=== PATIENT | male | born 1945 | race Caucasian/White ===

== ENCOUNTER → 2017-01-06 | Day surgery (SDC) | payer OTHER ==
[~2017-01-06] VITALS: Ht 167.6 cm; Wt 108.4 kg
[~2017-01-06] MED LIST: ACETAMINOPHEN 325 MG TAB PO PRN; ATEN50TA2 PO; AcetaZOLAMIDE 500 MG ER CAP PO ONE; BSS with VANC/TOB/EPI for EYE CASES IR ONE; CRES20TA PO; CYCLOPENTOLATE 2% OPHTH SOLN OS ONE; DEMA20TA6 PO; ECOT81TA5 PO; FISH500C PO; HEALON DUET (HEALON 10MG/ML 0.55ML & HEALON ENDOCOAT 30MG/ML 0.85ML) As Ordered ONE; INSUH10VL SC; INSULADS SC; KETOROLAC 0.5% OPHTH SOLN OS ONE; LEVO175T2 PO; LIDOCAINE 1% SDV 5 ML VIAL As Ordered ONE; LIDOCAINE 4% INJ 5 ML AMP OU ONE; LISI-542 PO; LISI10TA4 PO; MIDAZOLAM INJ 2 MG/2 ML VIAL (J2250) As Ordered ONE; MIRT30TA3 PO; MOXIFLOXACIN IN BSS 0.25MG/0.25ML INTRACAMERAL INJ (OR EYE ONLY)(J2280) As Ordered ONE; NITR4TASL SL; OFLOXACIN 0.3 % (OCUFLOX) OPTH SOL 5ML OS ONE; PHENYLEPHRINE 2.5% OPHTH SOL 2ML OS ONE; POVIDONE-IODINE 5% OPHTH PREP SOL 30ML As Ordered ONE; PROPARACAINE 0.5% OPHTH SOL 15ML OS PRN; SERT50TA PO; TORS20TA2 PO; TRIAMCINOLONE PRES FR 40 MG/ML 1ML(TRIESENCE)(OR EYE ONLY)(J3300 PER 1MG) As Ordered ONE; TRIMETHOBENZAMIDE 300 MG CAP PO PRN; TROPICAMIDE 1% OPHTH SOLN 2 ML OS ONE; fentaNYL 100 MCG/2 ML INJECTION (J3010) As Ordered ONE
[2017-01-06 09:08] VITALS: BP 134/82
== END | disposition home or self-care (01) ==
LOC: M SDC 07:03
PROVIDERS: ATTEND Ophthalmology
DX: H26.9 Unspecified cataract (principal); I10 Essential (primary) hypertension; E78.00 Pure hypercholesterolemia, unspecified; E03.9 Hypothyroidism, unspecified; M12.9 Arthropathy, unspecified; C91.10 Chronic lymphocytic leukemia of B-cell type not having achieved remission; M54.2 Cervicalgia; F41.9 Anxiety disorder, unspecified; F32.9 Major depressive disorder, single episode, unspecified; R06.83 Snoring; G47.30 Sleep apnea, unspecified; E11.42 Type 2 diabetes mellitus with diabetic polyneuropathy; E11.65 Type 2 diabetes mellitus with hyperglycemia; I25.10 Atherosclerotic heart disease of native coronary artery without angina pectoris; E66.01 Morbid (severe) obesity due to excess calories; Z68.41 Body mass index [BMI] 40.0-44.9, adult; Z79.899 Other long term (current) drug therapy; Z79.4 Long term (current) use of insulin; Z86.73 Personal history of transient ischemic attack (TIA), and cerebral infarction without residual deficits; Z95.818 Presence of other cardiac implants and grafts; Z87.891 Personal history of nicotine dependence; Z91.14 Patient's other noncompliance with medication regimen
CPT/HCPCS: 66984; J2250; J2280; J3010; J3300; V2632

== ENCOUNTER → 2017-01-26 | Day surgery (SDC) | payer OTHER ==
[~2017-01-26] VITALS: Ht 167.6 cm; Wt 108.0 kg
[~2017-01-26] MED LIST changes: +CYCLOPENTOLATE 2% OPHTH SOLN As Ordered ONE; +CYCLOPENTOLATE 2% OPHTH SOLN OD ONE; -CYCLOPENTOLATE 2% OPHTH SOLN OS ONE; +KETOROLAC 0.5% OPHTH SOLN OD ONE; -KETOROLAC 0.5% OPHTH SOLN OS ONE; +OFLOXACIN 0.3 % (OCUFLOX) OPTH SOL 5ML As Ordered ONE; +OFLOXACIN 0.3 % (OCUFLOX) OPTH SOL 5ML OD ONE; -OFLOXACIN 0.3 % (OCUFLOX) OPTH SOL 5ML OS ONE; +PHENYLEPHRINE 2.5% OPHTH SOL 2ML As Ordered ONE; +PHENYLEPHRINE 2.5% OPHTH SOL 2ML OD ONE; -PHENYLEPHRINE 2.5% OPHTH SOL 2ML OS ONE; +PROPARACAINE 0.5% OPHTH SOL 15ML OD PRN; -PROPARACAINE 0.5% OPHTH SOL 15ML OS PRN; +TROPICAMIDE 1% OPHTH SOLN 2 ML As Ordered ONE; +TROPICAMIDE 1% OPHTH SOLN 2 ML OD ONE; -TROPICAMIDE 1% OPHTH SOLN 2 ML OS ONE
[2017-01-26 11:25] VITALS: BP 136/66
== END | disposition home or self-care (01) ==
LOC: M SDC 08:38
PROVIDERS: ATTEND Ophthalmology
DX: H26.9 Unspecified cataract (principal); I10 Essential (primary) hypertension; E10.9 Type 1 diabetes mellitus without complications; E03.9 Hypothyroidism, unspecified; E78.00 Pure hypercholesterolemia, unspecified; M12.9 Arthropathy, unspecified; M54.2 Cervicalgia; F41.9 Anxiety disorder, unspecified; F32.9 Major depressive disorder, single episode, unspecified; R06.83 Snoring; G47.30 Sleep apnea, unspecified; Z79.899 Other long term (current) drug therapy; Z79.4 Long term (current) use of insulin; Z86.73 Personal history of transient ischemic attack (TIA), and cerebral infarction without residual deficits; Z87.891 Personal history of nicotine dependence; Z95.5 Presence of coronary angioplasty implant and graft
CPT/HCPCS: 66984; J2250; J2280; J3010; J3300; V2632

== ENCOUNTER → 2017-05-21 | Outpatient (CLI) | payer OTHER ==
[~2017-05-21] MED LIST changes: -ACETAMINOPHEN 325 MG TAB PO PRN; -AcetaZOLAMIDE 500 MG ER CAP PO ONE; -BSS with VANC/TOB/EPI for EYE CASES IR ONE; +CARV12.5 PO; +CORE6.25 PO; +COUM1TAB19 PO; -CYCLOPENTOLATE 2% OPHTH SOLN As Ordered ONE; -CYCLOPENTOLATE 2% OPHTH SOLN OD ONE; +FISH120012 PO; -HEALON DUET (HEALON 10MG/ML 0.55ML & HEALON ENDOCOAT 30MG/ML 0.85ML) As Ordered ONE; +IPRA2IN INH; -KETOROLAC 0.5% OPHTH SOLN OD ONE; +LEVA12INH INH; -LIDOCAINE 1% SDV 5 ML VIAL As Ordered ONE; -LIDOCAINE 4% INJ 5 ML AMP OU ONE; -MIDAZOLAM INJ 2 MG/2 ML VIAL (J2250) As Ordered ONE; -MOXIFLOXACIN IN BSS 0.25MG/0.25ML INTRACAMERAL INJ (OR EYE ONLY)(J2280) As Ordered ONE; -OFLOXACIN 0.3 % (OCUFLOX) OPTH SOL 5ML As Ordered ONE; -OFLOXACIN 0.3 % (OCUFLOX) OPTH SOL 5ML OD ONE; -PHENYLEPHRINE 2.5% OPHTH SOL 2ML As Ordered ONE; -PHENYLEPHRINE 2.5% OPHTH SOL 2ML OD ONE; -POVIDONE-IODINE 5% OPHTH PREP SOL 30ML As Ordered ONE; -PROPARACAINE 0.5% OPHTH SOL 15ML OD PRN; +SERT-138 PO; +SYNT175T2 PO; +TOUJ1.2I SC; -TRIAMCINOLONE PRES FR 40 MG/ML 1ML(TRIESENCE)(OR EYE ONLY)(J3300 PER 1MG) As Ordered ONE; -TRIMETHOBENZAMIDE 300 MG CAP PO PRN; -TROPICAMIDE 1% OPHTH SOLN 2 ML As Ordered ONE; -TROPICAMIDE 1% OPHTH SOLN 2 ML OD ONE; -fentaNYL 100 MCG/2 ML INJECTION (J3010) As Ordered ONE
--- NOTE | 2017-05-21 15:37 | REP ---
PA and lateral chest: Comparison is 05/02/2015. The volume of fluid loculated in the minor fissure has significantly decreased. The lung xavier otherwise clear. Cardiac size is normal. The bob, mediastinum, and bony thorax are well. There are sternotomy wires, unchanged. Impression: The volume of fluid loculated in the minor fissure has decreased. There is no other interval change. Signed by Keyon Major MD 05/21/2017 03:28 P
== END ==
LOC: M WUC 14:38
PROVIDERS: ATTEND Physician Assistant
DX: R06.00 Dyspnea, unspecified (principal)

== ENCOUNTER 2017-06-14 05:24 | Inpatient (IN) | payer OTHER, MEDICARE ==
[~2017-06-14] VITALS: Ht 170.2 cm; Wt 110.7 kg
[~2017-06-14 05:24] MED LIST changes: -CARV12.5 PO; -CORE6.25 PO; -COUM1TAB19 PO; -FISH120012 PO; -IPRA2IN INH; -LEVA12INH INH; -SERT-138 PO; -SYNT175T2 PO; -TOUJ1.2I SC
[2017-06-14] MEDS ORDERED: FUROSEMIDE 100 MG/10 ML VIAL (J1940) IV ONE (05:45)
[2017-06-14] MEDS ORDERED: NITROGLYCERIN 2% OINT 1 GM *U/D* PKT TOP ONE (05:45)
[2017-06-14 05:59] LABS: BASO # 0.1 K/mm3 (0.0-0.2); BASO % 0.5 % (0.0-1.0); EOS # 0.3 K/mm3 (0.0-0.50); EOS % 2.1 % (0.0-3.0); LARGE UNSTAINED CELL # 0.2 K/mm3 (0.0-0.4); LARGE UNSTAINED CELL % 1.3 % (0.0-4.0); LYMPH # 3.2 K/mm3 (1.5-4.5); LYMPH % 24.7 % (24.0-44.0); MEAN CORPUSCULAR HEMOGLOBIN 30.1 pg (27.0-33.0); MEAN CORPUSCULAR HGB CONC 32.5 g/dl (32.0-36.5); MEAN CORPUSCULAR VOLUME 92.5 fl (80.0-96.0); MONO # 0.5 K/mm3 (0.0-0.8); MONO % 4.1 % (0.0-5.0); NEUTROPHILS # 8.2 K/mm3 (1.8-7.7); NEUTROPHILS % 67.3 % (36.0-66.0); PLATELET COUNT, AUTOMATED 139 k/mm3 (150-450); RED CELL DISTRIBUTION WIDTH 13.2 % (11.5-14.5); WHITE BLOOD COUNT 12.2 K/mm3 (4.0-10.0)
[2017-06-14] MEDS ORDERED: TOUJ1.2I SC (05:59)
[2017-06-14 06:06] LABS: INR 1.05
[2017-06-14] MEDS ORDERED: diltiaZEM 125 MG in NS 100 ML IV SCH (06:15)
[2017-06-14] MEDS ORDERED: SYNT175T2 PO (06:25)
[2017-06-14] MEDS ORDERED: INSUH10VL SC (06:25)
[2017-06-14] MEDS ORDERED: FISH120012 PO (06:25)
[2017-06-14] MEDS ORDERED: LISI10TA4 PO (06:25)
[2017-06-14 06:26] LABS: CALCIUM LEVEL 8.6 MG/DL (8.8-10.2); CREATININE FOR GFR 1.43 MG/DL (0.70-1.30); POTASSIUM SERUM 4.2 MEQ/L (3.5-5.1)
[2017-06-14] MEDS ORDERED: CEFUROXIME SODIUM 1.5 GM in D5W MINI-BAG PLUS 50 ML IV ONE (06:45)
[2017-06-14] MEDS ORDERED: AZITHROMYCIN INJ 500 MG, VIAL MATE ADAPTER 1 EACH in D5W 250 ML IV ONE (06:45)
[2017-06-14] MEDS ORDERED: ONDANSETRON 4MG/2ML VIAL (J2405) IV PRN (08:15)
[2017-06-14] MEDS ORDERED: GLUCOSE 4 GM CHEW TABLET PO PRN (08:15)
[2017-06-14] MEDS ORDERED: DEXTROSE 50% 50 ML SYRINGE IV PRN (08:15)
[2017-06-14] MEDS ORDERED: GLUCAGON FOR INJ 1 MG VIAL (J1610) SC PRN (08:15)
--- NOTE | 2017-06-14 09:07 | REP ---
Clinical: Dyspnea. Technique: Portable semiupright AP view. Comparison: 05/21/2017. Findings: Cardiomegaly with chronic interstitial changes. Superimposed findings to suggest interstitial edema as well as right upper lobe atelectasis/consolidation and bibasilar atelectasis. No pneumothorax. Evidence for prior sternotomy. Skeletal structures intact. Impression: Right upper lobe opacity and bibasilar atelectasis along with cardiomegaly and suspected interstitial edema. Signed by Suleman Roque MD 06/14/2017 08:59 A
[2017-06-14] MEDS ORDERED: TORS20TA2 PO (09:43)
[2017-06-14] MEDS ORDERED: SERT-138 PO (09:43)
[2017-06-14] MEDS: LEVEMIR (INSULIN DETEMIR) 1 UNITS/0.01ML SC SCH ×2 (11:03→21:41)
[2017-06-14] MEDS: SERTRALINE 100 MG TAB PO SCH (11:03)
[2017-06-14] MEDS: HumaLOG INSULIN (NovoLOG) PER UNIT SC SCH ×3 (11:06→21:00)
[2017-06-14] MEDS: FUROSEMIDE 100 MG/10 ML VIAL (J1940) IV SCH ×2 (11:10→21:40)
[2017-06-14] MEDS ORDERED: LEVALBUTEROL 1.25 MG/0.5 ML CONCENTRATE NEB INH PRN (11:15)
[2017-06-14] MEDS: MIRTAZAPINE 15 MG TAB PO SCH (11:26)
[2017-06-14 12:00] VITALS: BP 150/70
[2017-06-14] MEDS: CARVedilol 3.125 MG TAB PO SCH ×3 (13:02→23:29)
[2017-06-14] MEDS: SENOKOT S TAB PO SCH ×2 (13:03→21:40)
[2017-06-14] MEDS: HEPARIN SOD (PORCINE) 5000 UNITS/ML VIAL SC SCH ×2 (13:03→21:40)
--- NOTE | 2017-06-14 13:18 | ECHO ---
DATE OF PROCEDURE: 06/14/2017 DATE OF : 1945 AGE: 81 GENDER: Male HEIGHT: 67 inches WEIGHT: 238 pounds BODY SURFACE AREA: 2.18 meters squared INPATIENT: Currently in the emergency room. REFERRING PHYSICIAN: Dr. Tejada INDICATION: Atrial flutter. Congestive heart failure (CHF). MEASUREMENTS 2D measurements: RV: 3.6 cm LV: 6.0 cm Septum: 1.2 cm Posterior wall: 1.2 cm Aortic root: 3.4 cm LA: 4.9 cm LVEF: 45% Doppler measurements: AV: 1.5 meters per second MV-E: 120 Early mitral deceleration time: 156 milliseconds E prime: 5.6, E/E prime ratio: 21 PV: 1.0 meters per second Pulmonary artery acceleration time: 74 milliseconds RVSP: 58 mmHg IVC: 2.3 cm COMMENTS: Underlying atrial fibrillation/flutter with controlled ventricular response. Technically difficult in light of the patient's body habitus but diagnostically useful information was still obtained. Mild to moderately dilated left atrium and mildly dilated left ventricle. Right heart chamber sizes and right ventricular chamber size was normal. Right atrium and IVC appeared to be at least mildly dilated. LV wall thickness was upper limits of normal to slightly hypertrophied. On real-time imaging from the parasternal and apical projections, the proximal inferior and inferoseptal region was akinetic. Other wall motion appeared to be normal. Mild mitral annular thickening with normal leaflet thickness; however, there was a "low flow" appearance to leaflet motion. No posterior systolic buckling. Three equal size aortic cusps with slightly thickened cusp edges but adequate cusp separation with slight degree of premature aortic valve closure and reduced aortic root excursion in keeping with reduced forward stroke volume. No apparent intracardiac mass or pericardial effusion. Color flow Doppler study taken from the parasternal and apical projection showed very mild mitral and tricuspid but no aortic insufficiency. Guided continuous wave Doppler of his aortic valve showed a normal peak systolic velocity against LV outflow tract obstruction. Pulsed and continuous wave Doppler of his LV inflow tract taken from the apical four-chamber projection showed normal diastolic filling velocities against mitral stenosis. There was only early diastolic/passive filling pattern as we would expect with atrial fibrillation/flutter. Using a combination of pulsed and tissue Doppler of his mitral annulus, his estimated mean left atrial pressure was elevated. Pulsed and continuous wave Doppler of his pulmonary trunk showed a normal peak systolic velocity against RV outflow tract obstruction. His pulmonary artery acceleration time was significantly abbreviated in keeping with an elevated pulmonary vascular resistance. Guided continuous wave Doppler of his tricuspid valve allowed our estimation of his right ventricular systolic pressure (moderately severely increased). His inferior vena cava was at least mildly dilated with markedly reduced respiratory collapse consistent with right heart failure. CONCLUSIONS: Somewhat technically challenging in light of the patient's body habitus. Mildly dilated and borderline hypertrophied left ventricle with proximal inferior/ inferoseptal akinesis and at least moderate impairment of global resting systolic function. Moderately dilated left atrium with Doppler evidence of an elevated mean left atrial pressure at this time. Normal right ventricular size with the right ventricular hypokinesis and Doppler evidence of moderately severe pulmonary hypertension. Mildly dilated right atrium and inferior vena cava (IVC) with virtually absent respiratory collapse consistent with significantly elevated central venous pressure and right heart failure. Subtle aortic valvular sclerosis and mitral annular thickening without functionally significant valvular abnormality. Copy To: Dr. Emmanuel, [place], [place]
[2017-06-14 14:00] VITALS: BP 143/64
--- NOTE | 2017-06-14 14:44 | HPE ---
DATE OF ADMISSION: 06/14/2017 PRIMARY CARE PROVIDER: Donn Sinclair Jr., MD [employer] OPERATOR: Dr. Emmanuel in [facility] CHIEF COMPLAINT: Increasing shortness of breath for 1 week, worse over the past 3 days, along with chest pressure. PAST MEDICAL HISTORY: Coronary artery disease, status post coronary artery bypass graft (CABG) in 1997 , status post stents in the same year. Peripheral vascular disease, status post stents in the right leg about 5 years ago. Diabetes. Hypertension. Congestive heart failure. Hyperlipidemia. Chronic kidney disease (CKD) stage III. Obstructive sleep apnea (ELIAS). Not on any oxygen or continuous positive airway pressure (CPAP). Anxiety and panic attacks. HISTORY OF PRESENT ILLNESS: This is a 72-year-old male who has been feeling unwell over the past 2 weeks, which for that about 7 days ago, went to an urgent care because of difficulty in breathing. He was prescribed some nebulizers. Had an x-ray done. He used the nebulizers. He was feeling a little better. However, 3 days ago, he started again feeling worse with increasing shortness of breath, chest tightness, unable to take in enough air. He also noticed leg swelling. It worsened yesterday, and he was feeling very unwell. So, he came to the emergency room. In the emergency department (ED), on arrival, the patient was noted to be in supraventricular tachycardia (SVT) with a rate of around 140. He was also noted to have some papilledema. He was having wheezing and crackles. He had a chest x-ray done, which showed interstitial edema, bilateral atelectasis, as well as a right upper lobe opacity. The patient was diagnosed with congestive heart failure exacerbation, SVT, and pneumonia. The patient was given diltiazem intravenously and started diltiazem drip in the emergency room with change of rhythm to atrial flutter with the rate of around 100. He received cefuroxime and azithromycin in the emergency room. He also received 100 mg of Lasix with urine output of about 600. After that, he started feeling better. Subsequently, the hospitalist service was consulted for admission for congestive heart failure exacerbation, pneumonia, and SVT, atrial flutter. PAST SURGICAL HISTORY: Coronary artery bypass graft (CABG). Cardiac stents and peripheral vascular stent. Cataract surgery. HOME MEDICATIONS: - aspirin 81 mg daily - fish oil 1200 mg daily - Toujeo insulin 70 units twice a day - aspart insulin 30 units in the a.m. and 30 units at lunch and 42 units in the p.m. - Synthroid 175 mcg by mouth daily - Lisinopril 10 mg by mouth daily - mirtazapine 30 mg at bedtime - nitroglycerin 0.4 mg sublingual as needed chest pain - Crestor 20 mg at bedtime - sertraline 100 mg by mouth daily - torsemide 40 mg by mouth daily SOCIAL HISTORY: The patient is an ex-smoker. Smoked three packs for about 40 years. Quit smoking about 14 years ago. Does not abuse alcohol or recreational drugs. ALLERGIES: To STREPTOKINASE. REVIEW OF SYSTEMS: All ten-point review of systems are negative, except those mentioned in history of present illness (HPI). PHYSICAL EXAMINATION: VITAL SIGNS: Temperature 97.7, pulse 85, respiratory rate 22, blood pressure 143/67, pulse oximetry 90% with 4 liters nasal cannula. GENERAL: The patient awake, alert, oriented times three. Sitting up in mild distress. HEENT: Normocephalic, atraumatic. Moist mucous membranes. Anicteric eyes. CHEST: Bilateral expiratory wheezes and mild crackles at the base. Overall, poor air entry. CARDIOVASCULAR: S1, S2. Regular. No rub, murmur, or gallop. ABDOMEN: Obese. Soft. Nontender. Bowel sounds present. EXTREMITIES: Trace edema. LABORATORY DATA: WBC 12.2, hemoglobin 12.8, platelet 139. Sodium 136, potassium 4.2, chloride 99, bicarbonate 31, BUN 24, creatinine 1.43, glucose 243, calcium 8.6, cardiac enzymes negative, troponin is 0.19, BNP 79, TSH 3.45, lactic acid 1.8. Coagulation studies are normal. ASSESSMENT AND PLAN: This is a 72-year-old male admitted to the hospital for pneumonia, congestive heart failure exacerbation, and cardiac arhythmia. PLAN: 1. For pneumonia, will continue the patient on ceftriaxone and azithromycin. Blood cultures have been ordered. Will send sputum if available. 2. Congestive heart failure exacerbation. Will get echocardiogram. Will continue the patient on Lasix 60 mg every 8 hours, oral fluid restriction 1.5 liters. Will also continue with nebulizers as needed. Will discontinue diltiazem and start the patient on Coreg 3.125 every 6 hours. Continue on aspirin. 3. Coronary artery disease with history of coronary artery bypass graft (CABG) and stents in the past. Will continue with aspirin, statin. Start the patient on beta willard. 4. Supraventricular tachycardia (SVT), atrial flutter. Rate is at this point controlled. Will start the patient on Coreg 3.125 every 6 hours. If the rate becomes uncontrolled, will go up on Coreg and also add digoxin if required. 5. Chronic kidney disease stage III. Will continue to monitor. 6. Obesity. Complicating management. 7. Obstructive sleep apnea. Was advised to use CPAP and oxygen. However, the patient does not want to use them. Had refused to use them. 8. Peripheral vascular disease with history of stenting of the right lower extremity blood vessels. No issues at this point. 9. Diabetes. Will continue with insulin. Monitor fingersticks. 10. Hypertension. The patient's blood pressure was soft on admission. Will hold lisinopril. Will give Lasix, as well as Coreg. 11. Hyperlipidemia. Will continue with statin. 12. Anxiety and panic attacks. Will continue with sertraline and mirtazapine. 13. Hypothyroid. Will continue with Synthroid. 14. Deep venous thrombosis (DVT) prophylaxis has been ordered. 15. Elevated troponins. Will cycle cardiac markers. Most probably due to SVT and congestive heart failure. The patient initially requested a transfer to [facility], but as it was going to be a same-level transfer, so [place] wanted our hospital to get authorization from his insurance. However, we could not arrange for authorization here today as it is the weekend. At this point, the patient also was feeling very tired and wanted to stay in our hospital. So, will continue to manage the patient here. However, if troponins continue to rise, then will consider transferring him to [place] under Dr. Emmanuel's care. RAMO
[2017-06-14] MEDS: cefTRIAXone SOD 1 GM in D5W MINI-BAG PLUS 50 ML IV SCH (14:56)
[2017-06-14] MEDS: LEVOTHYROXINE 100MCG TABLET (0.1MG) PO SCH (14:56)
[2017-06-14] MEDS: LEVOTHYROXINE 75MCG TABLET (0.075MG) PO SCH (14:56)
[2017-06-14 16:00] VITALS: BP 112/58
[2017-06-14 20:00] VITALS: BP 119/73
[2017-06-14] MEDS ORDERED: MIRTAZAPINE 15 MG TAB PO SCH (21:00)
[2017-06-14] MEDS: ROSUVASTATIN 10 MG TAB (CRESTOR) PO SCH (21:40)
[2017-06-14 23:20] VITALS: BP 120/64
[2017-06-15 02:43] VITALS: BP 118/66
[2017-06-15] MEDS: FUROSEMIDE 100 MG/10 ML VIAL (J1940) IV SCH ×3 (05:19→21:27)
[2017-06-15] MEDS: CARVedilol 3.125 MG TAB PO SCH (05:20)
[2017-06-15] MEDS: LEVOTHYROXINE 75MCG TABLET (0.075MG) PO SCH (05:20)
[2017-06-15] MEDS: LEVOTHYROXINE 100MCG TABLET (0.1MG) PO SCH (05:20)
[2017-06-15 05:59] LABS: BASO # 0.1 K/mm3 (0.0-0.2); BASO % 0.6 % (0.0-1.0); EOS # 0.3 K/mm3 (0.0-0.50); EOS % 2.3 % (0.0-3.0); LARGE UNSTAINED CELL # 0.2 K/mm3 (0.0-0.4); LARGE UNSTAINED CELL % 1.6 % (0.0-4.0); LYMPH # 3.7 K/mm3 (1.5-4.5); LYMPH % 26.8 % (24.0-44.0); MEAN CORPUSCULAR HEMOGLOBIN 30.7 pg (27.0-33.0); MEAN CORPUSCULAR HGB CONC 33.1 g/dl (32.0-36.5); MEAN CORPUSCULAR VOLUME 92.7 fl (80.0-96.0); MONO # 0.7 K/mm3 (0.0-0.8); NEUTROPHILS # 8.4 K/mm3 (1.8-7.7); NEUTROPHILS % 63.7 % (36.0-66.0); PLATELET COUNT, AUTOMATED 149 k/mm3 (150-450); RED CELL DISTRIBUTION WIDTH 13.2 % (11.5-14.5); WHITE BLOOD COUNT 13.1 K/mm3 (4.0-10.0)
[2017-06-15] MEDS ORDERED: LEVALBUTEROL 1.25 MG/0.5 ML CONCENTRATE NEB INH SCH ×2 (06:00→12:00)
[2017-06-15 06:15] LABS: ANION GAP 6 MEQ/L (8-16); BLOOD UREA NITROGEN 24 MG/DL (7-18); CALCIUM LEVEL 8.8 MG/DL (8.8-10.2); CARBON DIOXIDE LEVEL 34 MEQ/L (21-32); CHLORIDE LEVEL 99 MEQ/L (98-107); CREATININE FOR GFR 1.26 MG/DL (0.70-1.30); GLOMERULAR FILTRATION RATE > 60.0 (>42); GLUCOSE, FASTING 89 MG/DL (83-110); MAGNESIUM LEVEL 2.5 MG/DL (1.8-2.4); POTASSIUM SERUM 3.7 MEQ/L (3.5-5.1); SODIUM LEVEL 139 MEQ/L (136-145)
[2017-06-15] MEDS: HumaLOG INSULIN (NovoLOG) PER UNIT SC SCH ×4 (07:30→22:50)
[2017-06-15 08:00] VITALS: BP 124/71
[2017-06-15] MEDS: HEPARIN SOD (PORCINE) 5000 UNITS/ML VIAL SC SCH ×2 (08:10→21:27)
[2017-06-15] MEDS: SERTRALINE 100 MG TAB PO SCH (08:11)
[2017-06-15] MEDS: SENOKOT S TAB PO SCH ×2 (08:11→21:26)
[2017-06-15] MEDS: ASPIRIN 81 MG ENTERIC TAB PO SCH (08:11)
[2017-06-15] MEDS: LEVEMIR (INSULIN DETEMIR) 1 UNITS/0.01ML SC SCH ×3 (08:11→21:28)
[2017-06-15] MEDS: AZITHROMYCIN 250 MG TAB PO SCH (08:11)
[2017-06-15] MEDS: MIRTAZAPINE 15 MG TAB PO SCH (08:12)
[2017-06-15] MEDS ORDERED: LEVALBUTEROL 1.25 MG/0.5 ML CONCENTRATE NEB INH PRN (09:07)
[2017-06-15] MEDS: LEVALBUTEROL 1.25 MG/0.5 ML CONCENTRATE NEB INH SCH ×3 (09:12→23:16)
--- NOTE | 2017-06-15 11:13 | IPNPDOC ---
Subjective Date Seen The patient was seen on 06/15/17. Subjective Chief Complaint/HPI The patient is a 72-year-old male admitted with a reason for visit of Atrial Flutter Chf Exacerbation. Events since last encounter feeling much better today . Sob improving , leg swelling also improving , no fever or chills, no chest tightness today , no cough or phlegm. No abdominal pain , nausea or vomiting or diarrhea. Objective Physical Examination General Exam: Positive: Alert, Cooperative, No Acute Distress Eye Exam: Positive: PERRLA, Conjunctiva & lids normal, EOMI, Negative: Sclera icteric ENT Exam: Positive: Atraumatic, Mucous membr. 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 continue fluid restriction (2) Atrial flutter Status: Acute Problem Text: atrial flutter/ fibrillation now rate controlled will increase dose of coreg. will start on Coumadin. (3) Pneumonia Status: Acute Problem Text: will continue with ceftriaxone and azithromycin. (4) CAD (coronary artery disease) Status: Chronic Problem Text: Had CABG in 1997 and stent x 2 the same year as one graft had failed. Had a repeat cardiac cath about 3 years ago which was fine. will continue with ASA, stain , started on coreg. (5) Hx of CABG Status: Chronic (6) PAD (peripheral artery disease) Status: Chronic Problem Text: s/p stenting in the right leg about 5 years ago. (7) Diabetes Status: Chronic Problem Text: will continue with levemir and lispro insulin (8) Hypertension Status: Chronic (9) Anxiety Status: Chronic Problem Text: continue with zoloft and mirtazepine. (10) Obesity Status: Chronic (11) Hypothyroid Status: Chronic Problem Text: continue with synthroid (12) Pulmonary hypertension Status: Chronic (13) Right heart failure Status: Acute Problem Text: acute on chronic will continue with IV lasix. Plan/VTE VTE Prophylaxis Ordered?: Yes VS, I&O, 24H, Fishbone Vital Signs/I&O Vital Signs Date Time Temp Pulse Resp B/P (MAP) Pulse Ox O2 Delivery O2 Flow Rate FiO2 06/15/17 10:01 Nasal Cannula 2.0 06/15/17 08:00 97.1 103 22 124/71 (88) 94 I&O- Last 24 Hours up to 6 AM 06/15/17 05:59 Intake Total 1000 ml Output Total 2975 ml Balance -1975 ml Laboratory Data 24H LABS Laboratory Tests 2 06/14/17 12:15: Total Creatine Kinase 175, Creatine Kinase MB 4.8H, Creatine Kinase MB Relative Index 2.74, Troponin I 0.18H 06/14/17 19:59: Total Creatine Kinase 171, Creatine Kinase MB 4.3H, Creatine Kinase MB Relative Index 2.51, Troponin I 0.14#H 06/15/17 00:20: Total Creatine Kinase 158, Creatine Kinase MB 4.0H, Creatine Kinase MB Relative Index 2.53, Troponin I 0.17#H 06/15/17 05:11: White Blood Count 13.1H, Red Blood Count 4.19L, Hemoglobin 12.8L, Hematocrit 38.8L, Mean Corpuscular Volume 92.7, Mean Corpuscular Hemoglobin 30.7, Mean Corpuscular Hemoglobin Concent 33.1, Red Cell Distribution Width 13.2, Platelet Count 149L, Neutrophils (%) (Auto) 63.7, Lymphocytes (%) (Auto) 26.8, Monocytes (%) (Auto) 5.0, Eosinophils (%) (Auto) 2.3, Basophils (%) (Auto) 0.6, Neutrophils # (Auto) 8.4H, Lymphocytes # (Auto) 3.7, Monocytes # (Auto) 0.7, Eosinophils # (Auto) 0.3, Basophils # (Auto) 0.1, Large Unclassified Cells % 1.6 , Large Unclassified Cells # 0.2, Anion Gap 6L, Glomerular Filtration Rate > 60.0, Blood Urea Nitrogen 24H, Creatinine 1.26, Sodium Level 139, Potassium Level 3.7, Chloride Level 99, Carbon Dioxide Level 34H, Calcium Level 8.8, Magnesium Level 2.5H CBC/BMP Laboratory Tests 06/15/17 05:11 Red Blood Count 4.19 L, Mean Corpuscular Volume 92.7, Mean Corpuscular Hemoglobin 30.7, Mean Corpuscular Hemoglobin Concent 33.1, Red Cell Distribution Width 13.2, Neutrophils (%) (Auto) 63.7, Lymphocytes (%) (Auto) 26.8, Monocytes (%) (Auto) 5.0, Eosinophils (%) (Auto) 2.3, Basophils (%) (Auto ) 0.6, Neutrophils # (Auto) 8.4 H, Lymphocytes # (Auto) 3.7, Monocytes # (Auto) 0.7, Eosinophils # (Auto) 0.3, Basophils # (Auto) 0.1, Calcium Level 8.8 Microbiology Microbiology 06/14/17 Blood Culture - Preliminary, Resulted No growth after 24 hours . All specim... 06/14/17 Blood Culture - Preliminary, Resulted No growth after 24 hours . All specim... GLADYS SARGENT MD Jun 15, 2017 11:13
[2017-06-15 12:15] VITALS: BP 142/76
[2017-06-15] MEDS: LISINOPRIL 5 MG TAB PO SCH (12:26)
[2017-06-15] MEDS: CARVedilol 6.25 MG TAB PO SCH ×2 (12:27→17:42)
[2017-06-15] MEDS ORDERED: SLF 3 ML SYR IV PRN (14:15)
[2017-06-15] MEDS: SLF 3 ML SYR IV SCH ×2 (14:53→21:27)
[2017-06-15] MEDS: cefTRIAXone SOD 1 GM in D5W MINI-BAG PLUS 50 ML IV SCH (14:53)
[2017-06-15 15:50] VITALS: BP 134/71
[2017-06-15] MEDS: WARFARIN SOD 5 MG TAB PO SCH (17:42)
[2017-06-15 20:06] VITALS: BP 114/60
--- NOTE | 2017-06-15 20:53 | ECGEPIP ---
Stationary ECG Study [facility] - ED Test Date: 2017-06-14 Pat Name: YOLA MARINA Department: Room: [place] [address] Gender: M Director Learning: idonna : 1945 Requested By: Levi Rayo Order Number: [id number] Reading MD: Shelley Rosario Measurements Intervals [place] Rate: 99 P: [place]: 0 QRS: 9 QRSD: 111 T: 68 QT: 344 QTc: 443 Interpretive Statements ATRIAL FLUTTER/TACHYCARDIA MODERATE INTRAVENTRICULAR CONDUCTION DELAY MODERATE T-WAVE ABNORMALITY, CONSIDER INFERIOR ISCHEMIA SLOWER COMPARED EARLIER SAME DAY Electronically Signed On 06-15-2017 20:52:47 EDT by Shelley Rosario
--- NOTE | 2017-06-15 20:54 | ECGEPIP ---
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
[2017-06-15] MEDS: ROSUVASTATIN 10 MG TAB (CRESTOR) PO SCH (21:26)
[2017-06-16 00:09] VITALS: BP 109/58
[2017-06-16 05:38] VITALS: BP 122/63
[2017-06-16 06:14] LABS: BASO % 0.3 % (0.0-1.0); EOS # 0.2 K/mm3 (0.0-0.50); EOS % 1.5 % (0.0-3.0); LARGE UNSTAINED CELL # 0.2 K/mm3 (0.0-0.4); LARGE UNSTAINED CELL % 1.8 % (0.0-4.0); LYMPH # 2.6 K/mm3 (1.5-4.5); LYMPH % 22.3 % (24.0-44.0); MEAN CORPUSCULAR HEMOGLOBIN 31.1 pg (27.0-33.0); MEAN CORPUSCULAR HGB CONC 33.1 g/dl (32.0-36.5); MONO # 0.5 K/mm3 (0.0-0.8); MONO % 4.4 % (0.0-5.0); NEUTROPHILS # 7.9 K/mm3 (1.8-7.7); NEUTROPHILS % 69.6 % (36.0-66.0); PLATELET COUNT, AUTOMATED 158 k/mm3 (150-450); WHITE BLOOD COUNT 11.4 K/mm3 (4.0-10.0)
[2017-06-16] MEDS: LEVOTHYROXINE 75MCG TABLET (0.075MG) PO SCH (06:18)
[2017-06-16] MEDS: LEVOTHYROXINE 100MCG TABLET (0.1MG) PO SCH (06:18)
[2017-06-16] MEDS: CARVedilol 6.25 MG TAB PO SCH ×4 (06:18→17:30)
[2017-06-16 06:19] LABS: CALCIUM LEVEL 8.5 MG/DL (8.8-10.2); CREATININE FOR GFR 1.55 MG/DL (0.70-1.30); GLOMERULAR FILTRATION RATE 47.4 (>42); MAGNESIUM LEVEL 2.5 MG/DL (1.8-2.4); POTASSIUM SERUM 4.1 MEQ/L (3.5-5.1)
[2017-06-16] MEDS: FUROSEMIDE 100 MG/10 ML VIAL (J1940) IV SCH ×2 (06:19→16:24)
[2017-06-16] MEDS: SLF 3 ML SYR IV SCH ×3 (06:19→22:00)
[2017-06-16] MEDS: HumaLOG INSULIN (NovoLOG) PER UNIT SC SCH ×4 (07:30→21:00)
[2017-06-16] MEDS: LEVALBUTEROL 1.25 MG/0.5 ML CONCENTRATE NEB INH SCH ×3 (07:35→23:06)
[2017-06-16 07:45] VITALS: BP 94/57
--- NOTE | 2017-06-16 08:02 | REP ---
Clinical: Pneumonia. CHF. Comparison: 06/14/2017. Findings: Cardiomegaly and findings to suggest interstitial edema again noted. Vague ovoid opacity overlies the right mid lung zone which may reflect infiltrate and/or pseudotumor with fluid in the minor fissure noted. Layering left effusion cannot be excluded. No pneumothorax. Skeletal structures intact. Impression: Cardiomegaly and interstitial edema suggested. Cannot exclude a vague opacity overlying the right mid lung zone as well as fluid in the minor fissure. Signed by Suleman Roque MD 06/16/2017 07:54 A
[2017-06-16] MEDS: SENOKOT S TAB PO SCH ×2 (09:00→21:31)
[2017-06-16] MEDS: SERTRALINE 100 MG TAB PO SCH (09:00)
[2017-06-16] MEDS: AZITHROMYCIN 250 MG TAB PO SCH (09:00)
[2017-06-16] MEDS: ASPIRIN 81 MG ENTERIC TAB PO SCH (09:00)
[2017-06-16] MEDS: MIRTAZAPINE 15 MG TAB PO SCH (09:00)
[2017-06-16] MEDS: LISINOPRIL 5 MG TAB PO SCH (09:01)
[2017-06-16] MEDS: HEPARIN SOD (PORCINE) 5000 UNITS/ML VIAL SC SCH ×2 (09:01→21:31)
[2017-06-16] MEDS: LEVEMIR (INSULIN DETEMIR) 1 UNITS/0.01ML SC SCH ×2 (09:02→21:31)
[2017-06-16 12:00] VITALS: BP 146/70
--- NOTE | 2017-06-16 13:07 | IPNPDOC ---
Subjective Date Seen The patient was seen on 06/16/17. Subjective Chief Complaint/HPI The patient is a 72-year-old male admitted with a reason for visit of Atrial Flutter Chf Exacerbation. Events since last encounter feeling much better, Sob slowly improving , leg swelling has improved. no chest pain , no cough . Objective Physical Examination General Exam: Positive: Alert, Cooperative, No Acute Distress Eye Exam: Positive: PERRLA, Conjunctiva & lids normal, EOMI, Negative: Sclera icteric ENT Exam: Positive: Atraumatic, Mucous membr. 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 continue fluid restriction (2) Atrial flutter Status: Acute Problem Text: atrial flutter/ fibrillation now rate controlled will increase dose of coreg. on Coumadin. (3) Pneumonia Status: Acute Problem Text: will continue with ceftriaxone and azithromycin. (4) CAD (coronary artery disease) Status: Chronic Problem Text: Had CABG in 1997 and stent x 2 the same year as one graft had failed. Had a repeat cardiac cath about 3 years ago which was fine. will continue with ASA, stain , started on coreg. (5) Hx of CABG Status: Chronic (6) PAD (peripheral artery disease) Status: Chronic Problem Text: s/p stenting in the right leg about 5 years ago. (7) Diabetes Status: Chronic Problem Text: Had relative hypoglycemia this am Says has symptoms of hypoglycemia when his sugars go below 120. will decrease night dose of levemir. (8) Hypertension Status: Chronic (9) Anxiety Status: Chronic Problem Text: continue with zoloft and mirtazepine. (10) Obesity Status: Chronic (11) Hypothyroid Status: Chronic Problem Text: continue with synthroid (12) Pulmonary hypertension Status: Chronic (13) Right heart failure Status: Acute Problem Text: acute on chronic will continue with IV lasix. Plan/VTE VTE Prophylaxis Ordered?: Yes VS, I&O, 24H, Fishbone Vital Signs/I&O Vital Signs Date Time Temp Pulse Resp B/P (MAP) Pulse Ox O2 Delivery O2 Flow Rate FiO2 06/16/17 12:17 80 118/66 06/16/17 08:10 Nasal Cannula 3.0 06/16/17 07:45 97.6 20 93 I&O- Last 24 Hours up to 6 AM 06/16/17 06:00 Intake Total 840 ml Output Total 1600 ml Balance -760 ml Laboratory Data 24H LABS Laboratory Tests 2 06/15/17 17:04: Bedside Glucose (Misc Panel) 87 06/15/17 22:30: Bedside Glucose (Misc Panel) 123H 06/16/17 02:08: Bedside Glucose (Misc Panel) 74L 06/16/17 02:36: Bedside Glucose (Misc Panel) 213H 06/16/17 05:38: White Blood Count 11.4H, Red Blood Count 4.06L, Hemoglobin 12.6L, Hematocrit 38.2L, Mean Corpuscular Volume 94.0, Mean Corpuscular Hemoglobin 31.1, Mean Corpuscular Hemoglobin Concent 33.1, Red Cell Distribution Width 13.0, Platelet Count 158, Neutrophils (%) (Auto) 69.6H, Lymphocytes (%) (Auto) 22.3L, Monocytes (%) (Auto) 4.4, Eosinophils (%) (Auto) 1.5, Basophils (%) (Auto) 0.3, Neutrophils # (Auto) 7.9H, Lymphocytes # (Auto) 2.6, Monocytes # (Auto) 0.5, Eosinophils # (Auto) 0.2, Basophils # (Auto) 0.0, Large Unclassified Cells % 1.8 , Large Unclassified Cells # 0.2, Anion Gap 7L, Glomerular Filtration Rate 47.4 , Blood Urea Nitrogen 30H, Creatinine 1.55H, Sodium Level 142, Potassium Level 4.1, Chloride Level 98, Carbon Dioxide Level 37H, Calcium Level 8.5L, Magnesium Level 2.5H CBC/BMP Laboratory Tests 06/16/17 05:38 Red Blood Count 4.06 L, Mean Corpuscular Volume 94.0, Mean Corpuscular Hemoglobin 31.1, Mean Corpuscular Hemoglobin Concent 33.1, Red Cell Distribution Width 13.0, Neutrophils (%) (Auto) 69.6 H, Lymphocytes (%) (Auto) 22.3 L, Monocytes (%) (Auto) 4.4, Eosinophils (%) (Auto) 1.5, Basophils (%) ( Auto) 0.3, Neutrophils # (Auto) 7.9 H, Lymphocytes # (Auto) 2.6, Monocytes # ( Auto) 0.5, Eosinophils # (Auto) 0.2, Basophils # (Auto) 0.0, Calcium Level 8.5 L Microbiology Microbiology 06/14/17 Blood Culture - Preliminary, Resulted No Growth after 48 hours. All Specime... 06/14/17 Blood Culture - Preliminary, Resulted No Growth after 48 hours. All Specime... GLADYS SARGENT MD Jun 16, 2017 13:07
[2017-06-16] MEDS: cefTRIAXone SOD 1 GM in D5W MINI-BAG PLUS 50 ML IV SCH (14:35)
[2017-06-16 15:45] VITALS: BP 132/85
[2017-06-16] MEDS: WARFARIN SOD 5 MG TAB PO SCH (17:30)
[2017-06-16 19:29] VITALS: BP 90/50
[2017-06-16] MEDS: ROSUVASTATIN 10 MG TAB (CRESTOR) PO SCH (21:30)
[2017-06-17 00:29] VITALS: BP 92/64
[2017-06-17] MEDS: CARVedilol 6.25 MG TAB PO SCH ×2 (00:45→05:35)
[2017-06-17 04:30] VITALS: BP 92/56
[2017-06-17] MEDS: LEVOTHYROXINE 100MCG TABLET (0.1MG) PO SCH (05:36)
[2017-06-17] MEDS: SLF 3 ML SYR IV SCH ×3 (05:36→21:26)
[2017-06-17] MEDS: LEVOTHYROXINE 75MCG TABLET (0.075MG) PO SCH (05:36)
[2017-06-17 05:53] LABS: BASO # 0.1 K/mm3 (0.0-0.2); BASO % 0.4 % (0.0-1.0); EOS # 0.3 K/mm3 (0.0-0.50); EOS % 2.5 % (0.0-3.0); LARGE UNSTAINED CELL # 0.2 K/mm3 (0.0-0.4); LARGE UNSTAINED CELL % 1.8 % (0.0-4.0); LYMPH # 3.5 K/mm3 (1.5-4.5); LYMPH % 25.6 % (24.0-44.0); MEAN CORPUSCULAR HEMOGLOBIN 30.7 pg (27.0-33.0); MEAN CORPUSCULAR HGB CONC 32.4 g/dl (32.0-36.5); MEAN CORPUSCULAR VOLUME 94.9 fl (80.0-96.0); MONO # 0.6 K/mm3 (0.0-0.8); MONO % 4.4 % (0.0-5.0); NEUTROPHILS # 8.4 K/mm3 (1.8-7.7); NEUTROPHILS % 65.2 % (36.0-66.0); PLATELET COUNT, AUTOMATED 162 k/mm3 (150-450); RED CELL DISTRIBUTION WIDTH 13.3 % (11.5-14.5); WHITE BLOOD COUNT 12.8 K/mm3 (4.0-10.0)
[2017-06-17 06:07] LABS: INR 1.07
[2017-06-17 06:15] LABS: CALCIUM LEVEL 8.8 MG/DL (8.8-10.2); CREATININE FOR GFR 1.42 MG/DL (0.70-1.30); GLOMERULAR FILTRATION RATE 52.5 (>42); MAGNESIUM LEVEL 2.6 MG/DL (1.8-2.4); POTASSIUM SERUM 4.1 MEQ/L (3.5-5.1)
[2017-06-17 07:30] VITALS: BP 133/79
[2017-06-17] MEDS: LEVALBUTEROL 1.25 MG/0.5 ML CONCENTRATE NEB INH SCH ×3 (07:32→23:11)
[2017-06-17] MEDS: SERTRALINE 100 MG TAB PO SCH (08:49)
[2017-06-17] MEDS: MIRTAZAPINE 15 MG TAB PO SCH (08:50)
[2017-06-17] MEDS: SENOKOT S TAB PO SCH ×2 (08:50→21:24)
[2017-06-17] MEDS: AZITHROMYCIN 250 MG TAB PO SCH (08:51)
[2017-06-17] MEDS: CARVedilol 12.5 MG TAB PO SCH ×2 (08:52→21:24)
[2017-06-17] MEDS: ASPIRIN 81 MG ENTERIC TAB PO SCH (08:52)
[2017-06-17] MEDS: HumaLOG INSULIN (NovoLOG) PER UNIT SC SCH ×4 (08:53→21:25)
[2017-06-17] MEDS: HEPARIN SOD (PORCINE) 5000 UNITS/ML VIAL SC SCH ×2 (08:54→21:23)
[2017-06-17] MEDS: FUROSEMIDE 100 MG/10 ML VIAL (J1940) IV SCH ×2 (08:54→15:58)
[2017-06-17] MEDS ORDERED: LEVEMIR (INSULIN DETEMIR) 1 UNITS/0.01ML SC SCH (09:00)
[2017-06-17] MEDS: BUDESONIDE 0.5 MG/2 ML INHALATION SUSPENSION INH SCH ×2 (09:14→23:11)
[2017-06-17 12:10] VITALS: BP 105/54
--- NOTE | 2017-06-17 12:50 | IPNPDOC ---
Subjective Date Seen The patient was seen on 06/17/17. Subjective Chief Complaint/HPI The patient is a 72-year-old male admitted with a reason for visit of Atrial Flutter Chf Exacerbation. Events since last encounter does not offer any new complaints though still requiring 3 to 5 liters of oxygen. denies any sob . Had a panic attack last night which he thinks as he has not been getting uninterrupted sleep at night. no fever or chills, has some cough but no expectoration. Objective Physical Examination General Exam: Positive: Alert, Cooperative, No Acute Distress Eye Exam: Positive: PERRLA, Conjunctiva & lids normal, EOMI, Negative: Sclera icteric ENT Exam: Positive: Atraumatic, Mucous membr. 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 continue fluid restriction will continue with nebs. (2) Atrial flutter Status: Acute Problem Text: atrial flutter/ fibrillation now rate controlled will give coreg 12.5 bid. on Coumadin. will increase dose. (3) Pneumonia Status: Acute Problem Text: will continue with ceftriaxone and azithromycin. (4) CAD (coronary artery disease) Status: Chronic Problem Text: Had CABG in 1997 and stent x 2 the same year as one graft had failed. Had a repeat cardiac cath about 3 years ago which was fine. will continue with ASA, stain , started on coreg. (5) Hx of CABG Status: Chronic (6) PAD (peripheral artery disease) Status: Chronic Problem Text: s/p stenting in the right leg about 5 years ago. (7) Diabetes Status: Chronic Problem Text: Had relative hypoglycemia this am Says has symptoms of hypoglycemia when his sugars go below 120. will decrease night dose of levemir. (8) Hypertension Status: Chronic (9) Anxiety Status: Chronic Problem Text: continue with zoloft and mirtazepine. (10) Obesity Status: Chronic (11) Hypothyroid Status: Chronic Problem Text: continue with synthroid (12) Pulmonary hypertension Status: Chronic (13) Right heart failure Status: Acute Problem Text: acute on chronic will continue with IV lasix. Plan/VTE VTE Prophylaxis Ordered?: Yes VS, I&O, 24H, Fishbone Vital Signs/I&O Vital Signs Date Time Temp Pulse Resp B/P (MAP) Pulse Ox O2 Delivery O2 Flow Rate FiO2 06/17/17 08:52 101 133/79 06/17/17 07:30 96.4 20 98 Nasal Cannula 5.0 I&O- Last 24 Hours up to 6 AM 06/17/17 05:59 Intake Total 750 ml Output Total 950 ml Balance -200 ml Laboratory Data 24H LABS Laboratory Tests 2 06/16/17 16:30: Bedside Glucose (Misc Panel) 178H 06/16/17 21:34: Bedside Glucose (Misc Panel) 248H 06/17/17 05:32: White Blood Count 12.8H, Red Blood Count 4.03L, Hemoglobin 12.4L, Hematocrit 38.2L, Mean Corpuscular Volume 94.9, Mean Corpuscular Hemoglobin 30.7, Mean Corpuscular Hemoglobin Concent 32.4, Red Cell Distribution Width 13.3, Platelet Count 162, Neutrophils (%) (Auto) 65.2, Lymphocytes (%) (Auto) 25.6, Monocytes ( %) (Auto) 4.4, Eosinophils (%) (Auto) 2.5, Basophils (%) (Auto) 0.4, Neutrophils # (Auto) 8.4H, Lymphocytes # (Auto) 3.5, Monocytes # (Auto) 0.6, Eosinophils # (Auto) 0.3, Basophils # (Auto) 0.1, Large Unclassified Cells % 1.8 , Large Unclassified Cells # 0.2, Prothrombin Time 14.1, Prothromb Time International Ratio 1.07, Anion Gap 7L, Glomerular Filtration Rate 52.5, Blood Urea Nitrogen 32H, Creatinine 1.42H, Sodium Level 140, Potassium Level 4.1, Chloride Level 98, Carbon Dioxide Level 35H, Calcium Level 8.8, Magnesium Level 2.6H 06/17/17 11:47: Bedside Glucose (Misc Panel) 193H CBC/BMP Laboratory Tests 06/17/17 05:32 Red Blood Count 4.03 L, Mean Corpuscular Volume 94.9, Mean Corpuscular Hemoglobin 30.7, Mean Corpuscular Hemoglobin Concent 32.4, Red Cell Distribution Width 13.3, Neutrophils (%) (Auto) 65.2, Lymphocytes (%) (Auto) 25.6, Monocytes (%) (Auto) 4.4, Eosinophils (%) (Auto) 2.5, Basophils (%) (Auto ) 0.4, Neutrophils # (Auto) 8.4 H, Lymphocytes # (Auto) 3.5, Monocytes # (Auto) 0.6, Eosinophils # (Auto) 0.3, Basophils # (Auto) 0.1, Calcium Level 8.8 Microbiology Microbiology 06/14/17 Blood Culture - Preliminary, Resulted No Growth after 72 hours. All specime... 06/14/17 Blood Culture - Preliminary, Resulted No Growth after 72 hours. All specime... GLADYS SARGENT MD Jun 17, 2017 12:49
[2017-06-17 15:50] VITALS: BP 111/60
[2017-06-17] MEDS: WARFARIN SOD 5 MG TAB PO SCH (15:57)
[2017-06-17] MEDS: cefTRIAXone SOD 1 GM in D5W MINI-BAG PLUS 50 ML IV SCH (15:58)
[2017-06-17 20:00] VITALS: BP 132/76
[2017-06-17] MEDS ORDERED: ACETAMINOPHEN TAB 650MG DOSE (2X325MG) PO PRN (21:15)
[2017-06-17] MEDS: ROSUVASTATIN 10 MG TAB (CRESTOR) PO SCH (21:24)
[2017-06-17] MEDS: LEVEMIR (INSULIN DETEMIR) 1 UNITS/0.01ML SC SCH (21:26)
[2017-06-18 00:09] VITALS: BP 105/60
[2017-06-18 04:00] VITALS: BP 119/64
[2017-06-18 05:50] LABS: BASO # 0.1 K/mm3 (0.0-0.2); BASO % 0.7 % (0.0-1.0); EOS # 0.4 K/mm3 (0.0-0.50); EOS % 3.2 % (0.0-3.0); LARGE UNSTAINED CELL # 0.2 K/mm3 (0.0-0.4); LARGE UNSTAINED CELL % 1.9 % (0.0-4.0); LYMPH # 3.3 K/mm3 (1.5-4.5); LYMPH % 27.8 % (24.0-44.0); MEAN CORPUSCULAR HEMOGLOBIN 30.2 pg (27.0-33.0); MEAN CORPUSCULAR HGB CONC 31.5 g/dl (32.0-36.5); MEAN CORPUSCULAR VOLUME 95.9 fl (80.0-96.0); MONO # 0.5 K/mm3 (0.0-0.8); MONO % 4.8 % (0.0-5.0); NEUTROPHILS # 6.8 K/mm3 (1.8-7.7); NEUTROPHILS % 61.6 % (36.0-66.0); PLATELET COUNT, AUTOMATED 165 k/mm3 (150-450); RED CELL DISTRIBUTION WIDTH 13.3 % (11.5-14.5); WHITE BLOOD COUNT 11.1 K/mm3 (4.0-10.0)
[2017-06-18 06:05] LABS: CALCIUM LEVEL 9.1 MG/DL (8.8-10.2); CREATININE FOR GFR 1.38 MG/DL (0.70-1.30); GLOMERULAR FILTRATION RATE 54.2 (>42); MAGNESIUM LEVEL 2.5 MG/DL (1.8-2.4); POTASSIUM SERUM 4.5 MEQ/L (3.5-5.1)
[2017-06-18 06:07] LABS: INR 1.31
[2017-06-18] MEDS: LEVOTHYROXINE 100MCG TABLET (0.1MG) PO SCH (06:15)
[2017-06-18] MEDS: SLF 3 ML SYR IV SCH ×3 (06:15→22:00)
[2017-06-18] MEDS: LEVOTHYROXINE 75MCG TABLET (0.075MG) PO SCH (06:15)
[2017-06-18] MEDS: BUDESONIDE 0.5 MG/2 ML INHALATION SUSPENSION INH SCH ×2 (07:10→20:56)
[2017-06-18] MEDS: LEVALBUTEROL 1.25 MG/0.5 ML CONCENTRATE NEB INH SCH ×2 (07:11→16:14)
[2017-06-18 08:00] VITALS: BP 131/69
[2017-06-18] MEDS: AZITHROMYCIN 250 MG TAB PO SCH (08:07)
[2017-06-18] MEDS: ASPIRIN 81 MG ENTERIC TAB PO SCH (08:07)
[2017-06-18] MEDS: SENOKOT S TAB PO SCH ×2 (08:08→21:11)
[2017-06-18] MEDS: HEPARIN SOD (PORCINE) 5000 UNITS/ML VIAL SC SCH ×2 (08:08→21:10)
[2017-06-18] MEDS: SERTRALINE 100 MG TAB PO SCH (08:08)
[2017-06-18] MEDS: FUROSEMIDE 100 MG/10 ML VIAL (J1940) IV SCH (08:10)
[2017-06-18] MEDS: MIRTAZAPINE 15 MG TAB PO SCH (08:12)
[2017-06-18] MEDS: CARVedilol 12.5 MG TAB PO SCH ×2 (08:12→21:11)
[2017-06-18] MEDS: HumaLOG INSULIN (NovoLOG) PER UNIT SC SCH ×4 (08:14→20:46)
[2017-06-18] MEDS: LEVEMIR (INSULIN DETEMIR) 1 UNITS/0.01ML SC SCH (08:15)
[2017-06-18 12:00] VITALS: BP 136/75
--- NOTE | 2017-06-18 13:18 | IPNPDOC ---
Subjective Date Seen The patient was seen on 06/18/17. Subjective Chief Complaint/HPI The patient is a 72-year-old male admitted with a reason for visit of Atrial Flutter Chf Exacerbation. Events since last encounter still requiring oxygen. continues to have wheezing though does not complain of any SOB. Objective Physical Examination General Exam: Positive: Alert, Cooperative, No Acute Distress Eye Exam: Positive: PERRLA, Conjunctiva & lids normal, EOMI, Negative: Sclera icteric ENT Exam: Positive: Atraumatic, Mucous membr. moist/pink, Pharynx Normal Neck Exam: Positive: Supple, Negative: JVD, thyromegaly Chest Exam: Positive: Rales, Rhonchi, Wheezing, Diminished Heart Exam: Positive: Rate Normal, Irregular Rhythm, Normal S1, Normal S2 Telemetry: Positive: Other Telemetry: (atrial flutter) Abdomen Exam: Positive: Normal bowel sounds, Soft, Negative: Tenderness, Hepatospenomegaly Extremity Exam: Positive: Edema Skin Exam: Positive: Nl turgor and temperature, Negative: Rash, Breakdown Assessment /Plan Problems (1) Acute respiratory failure with hypoxia Problem Text: due to CHF exacerbation and fluid overload. continues to require 3 to 4 liters of oxygen. Patient saturates 82% at rest in room air. pateint will need to go home with home oxygen. 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 daily weight and I/O monitoring . continue fluid restriction will continue with nebs. (3) Atrial flutter Status: Acute Problem Text: atrial flutter/ fibrillation now rate controlled will give coreg 12.5 bid. on Coumadin. will increase dose. (4) Pneumonia Status: Resolved Problem Text: finished 5 days of ceftriaxone and azithromycin. will get ct chest . (5) CAD (coronary artery disease) Status: Chronic Problem Text: Had CABG in 1997 and stent x 2 the same year as one graft had failed. Had a repeat cardiac cath about 3 years ago which was fine. will continue with ASA, stain , started on coreg. (6) Hx of CABG Status: Chronic (7) PAD (peripheral artery disease) Status: Chronic Problem Text: s/p stenting in the right leg about 5 years ago. (8) Diabetes Status: Chronic Problem Text: Had relative hypoglycemia this am Says has symptoms of hypoglycemia when his sugars go below 120. will decrease night dose of levemir. (9) Hypertension Status: Chronic (10) Anxiety Status: Chronic Problem Text: continue with zoloft and mirtazepine. (11) Obesity Status: Chronic (12) Hypothyroid Status: Chronic Problem Text: continue with synthroid (13) Pulmonary hypertension Status: Chronic (14) Right heart failure Status: Acute Problem Text: acute on chronic will continue with IV lasix. Plan/VTE VTE Prophylaxis Ordered?: Yes VS, I&O, 24H, Fishbone Vital Signs/I&O Vital Signs Date Time Temp Pulse Resp B/P (MAP) Pulse Ox O2 Delivery O2 Flow Rate FiO2 06/18/17 08:12 91 131/69 06/18/17 08:00 Nasal Cannula 3.0 06/18/17 08:00 97.1 20 90 I&O- Last 24 Hours up to 6 AM 06/18/17 06:00 Intake Total 1130 ml Output Total 1950 ml Balance -820 ml Laboratory Data 24H LABS Laboratory Tests 2 06/17/17 16:44: Bedside Glucose (Misc Panel) 186H 06/17/17 21:19: Bedside Glucose (Misc Panel) 266H 06/18/17 05:23: White Blood Count 11.1H, Red Blood Count 4.28L, Hemoglobin 12.9L, Hematocrit 41.1L, Mean Corpuscular Volume 95.9, Mean Corpuscular Hemoglobin 30.2, Mean Corpuscular Hemoglobin Concent 31.5L, Red Cell Distribution Width 13.3, Platelet Count 165, Neutrophils (%) (Auto) 61.6, Lymphocytes (%) (Auto) 27.8, Monocytes (%) (Auto) 4.8, Eosinophils (%) (Auto) 3.2H, Basophils (%) (Auto) 0.7 , Neutrophils # (Auto) 6.8, Lymphocytes # (Auto) 3.3, Monocytes # (Auto) 0.5, Eosinophils # (Auto) 0.4, Basophils # (Auto) 0.1, Large Unclassified Cells % 1.9 , Large Unclassified Cells # 0.2, Prothrombin Time 16.6H, Prothromb Time International Ratio 1.31, Anion Gap 6L, Glomerular Filtration Rate 54.2, Blood Urea Nitrogen 35H, Creatinine 1.38H, Sodium Level 138, Potassium Level 4.5, Chloride Level 97L, Carbon Dioxide Level 35H, Calcium Level 9.1, Magnesium Level 2.5H CBC/BMP Laboratory Tests 06/18/17 05:23 Red Blood Count 4.28 L, Mean Corpuscular Volume 95.9, Mean Corpuscular Hemoglobin 30.2, Mean Corpuscular Hemoglobin Concent 31.5 L, Red Cell Distribution Width 13.3, Neutrophils (%) (Auto) 61.6, Lymphocytes (%) (Auto) 27.8, Monocytes (%) (Auto) 4.8, Eosinophils (%) (Auto) 3.2 H, Basophils (%) ( Auto) 0.7, Neutrophils # (Auto) 6.8, Lymphocytes # (Auto) 3.3, Monocytes # (Auto ) 0.5, Eosinophils # (Auto) 0.4, Basophils # (Auto) 0.1, Calcium Level 9.1 Microbiology Microbiology 06/14/17 Blood Culture - Preliminary, Resulted No Growth after 72 hours. All specime... 06/14/17 Blood Culture - Preliminary, Resulted No Growth after 72 hours. All specime... GLADYS SARGENT MD Jun 18, 2017 13:18
--- NOTE | 2017-06-18 14:52 | REP ---
Clinical: Shortness of breath. CHF. Findings: A small to moderate bilateral pleural effusions are appreciated along with fluid trapped in the fissures (right greater than left) including pseudotumor overlying the right mid lung zone due to fluid trapped in the posterior aspect of the right major fissure. Cardiomegaly with associated pulmonary vascular congestion is also appreciated as well as mediastinal and hilar adenopathy with lymph nodes measuring up to approximately 2 cm short axis diameter. Chronic interstitial changes are noted along with atherosclerotic changes of the thoracic aorta and coronary arteries. No pericardial effusion. Limited upper abdomen demonstrates cholelithiasis and normal bilateral adrenal glands. Impression: 1. Findings compatible with pulmonary edema including pulmonary vascular congestion, interstitial edema, and bilateral pleural effusions causing pseudotumor in the right upper lung zone. 2. Mediastinal and hilar adenopathy likely reactive. Signed by Suleman Roque MD 06/18/2017 02:43 P
[2017-06-18] MEDS: WARFARIN SOD 5 MG TAB PO SCH (18:22)
[2017-06-18 19:51] VITALS: BP 120/56
[2017-06-18] MEDS ORDERED: LEVEMIR (INSULIN DETEMIR) 1 UNITS/0.01ML SC SCH (21:00)
[2017-06-18] MEDS: ROSUVASTATIN 10 MG TAB (CRESTOR) PO SCH (21:11)
[2017-06-19] VITALS (7 sets, daily range): BP systolic 110–152; BP diastolic 52–74
[2017-06-19] MEDS: LEVALBUTEROL 1.25 MG/0.5 ML CONCENTRATE NEB INH SCH ×4 (00:13→23:54)
[2017-06-19] MEDS: LEVOTHYROXINE 100MCG TABLET (0.1MG) PO SCH (05:08)
[2017-06-19] MEDS: LEVOTHYROXINE 75MCG TABLET (0.075MG) PO SCH (05:08)
[2017-06-19] MEDS: SLF 3 ML SYR IV SCH ×3 (05:27→21:09)
[2017-06-19 05:46] LABS: BASO # 0.1 K/mm3 (0.0-0.2); BASO % 0.6 % (0.0-1.0); EOS # 0.3 K/mm3 (0.0-0.50); EOS % 2.7 % (0.0-3.0); LARGE UNSTAINED CELL # 0.2 K/mm3 (0.0-0.4); LARGE UNSTAINED CELL % 1.6 % (0.0-4.0); LYMPH # 3.5 K/mm3 (1.5-4.5); LYMPH % 26.2 % (24.0-44.0); MEAN CORPUSCULAR HEMOGLOBIN 30.2 pg (27.0-33.0); MEAN CORPUSCULAR HGB CONC 31.8 g/dl (32.0-36.5); MONO # 0.6 K/mm3 (0.0-0.8); PLATELET COUNT, AUTOMATED 157 k/mm3 (150-450); RED CELL DISTRIBUTION WIDTH 13.4 % (11.5-14.5); WHITE BLOOD COUNT 12.4 K/mm3 (4.0-10.0)
[2017-06-19 05:50] LABS: INR 2.1
[2017-06-19 06:06] LABS: ANION GAP 4 MEQ/L (8-16); BLOOD UREA NITROGEN 30 MG/DL (7-18); CALCIUM LEVEL 8.7 MG/DL (8.8-10.2); CARBON DIOXIDE LEVEL 37 MEQ/L (21-32); CHLORIDE LEVEL 96 MEQ/L (98-107); CREATININE FOR GFR 1.23 MG/DL (0.70-1.30); GLOMERULAR FILTRATION RATE > 60.0 (>42); GLUCOSE, FASTING 205 MG/DL (83-110); MAGNESIUM LEVEL 2.6 MG/DL (1.8-2.4); POTASSIUM SERUM 4.1 MEQ/L (3.5-5.1); SODIUM LEVEL 137 MEQ/L (136-145)
[2017-06-19] MEDS: BUDESONIDE 0.5 MG/2 ML INHALATION SUSPENSION INH SCH ×2 (07:11→19:53)
[2017-06-19] MEDS: metOLazone 5 MG TAB PO SCH (08:00)
[2017-06-19] MEDS: HumaLOG INSULIN (NovoLOG) PER UNIT SC SCH ×4 (08:02→20:55)
[2017-06-19] MEDS ORDERED: FUROSEMIDE 40 MG TAB PO SCH (09:00)
[2017-06-19] MEDS: FUROSEMIDE 40 MG/4 ML VIAL (J1940) IV SCH ×2 (09:15→17:05)
[2017-06-19] MEDS: SERTRALINE 100 MG TAB PO SCH (09:16)
[2017-06-19] MEDS: SENOKOT S TAB PO SCH ×2 (09:16→20:54)
[2017-06-19] MEDS: ASPIRIN 81 MG ENTERIC TAB PO SCH (09:16)
[2017-06-19] MEDS: HEPARIN SOD (PORCINE) 5000 UNITS/ML VIAL SC SCH ×2 (09:16→20:54)
[2017-06-19] MEDS: CARVedilol 3.125 MG TAB PO SCH ×2 (09:17→20:53)
[2017-06-19] MEDS: CARVedilol 12.5 MG TAB PO SCH ×2 (09:18→20:53)
[2017-06-19] MEDS: MIRTAZAPINE 15 MG TAB PO SCH (09:18)
[2017-06-19] MEDS: LEVEMIR (INSULIN DETEMIR) 1 UNITS/0.01ML SC SCH (09:19)
--- NOTE | 2017-06-19 10:14 | IPNPDOC ---
Subjective Date Seen The patient was seen on 06/19/17. Subjective Chief Complaint/HPI The patient is a 72-year-old male admitted with a reason for visit of Atrial Flutter Chf Exacerbation. Events since last encounter pateint hypoxic at rest in room air to 79%, says sob is improving. no cough or phlegm. feeling slowly better. Objective Physical Examination General Exam: Positive: Alert, Cooperative, No Acute Distress Eye Exam: Positive: PERRLA, Conjunctiva & lids normal, EOMI, Negative: Sclera icteric ENT Exam: Positive: Atraumatic, Mucous membr. 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 daily weight and I/O monitoring . continue fluid restriction will continue with nebs. (2) Atrial flutter Status: Acute Problem Text: atrial flutter/ fibrillation now rate controlled will give coreg 12.5 bid. on Coumadin. will increase dose. (3) Pneumonia Status: Resolved Problem Text: Ct chest did not showed any pneumonia all was fluid so did not have pneumonia however did finish finished 5 days of ceftriaxone and azithromycin. (4) CAD (coronary artery disease) Status: Chronic Problem Text: Had CABG in 1997 and stent x 2 the same year as one graft had failed. Had a repeat cardiac cath about 3 years ago which was fine. will continue with ASA, stain , started on coreg. (5) Hx of CABG Status: Chronic (6) PAD (peripheral artery disease) Status: Chronic Problem Text: s/p stenting in the right leg about 5 years ago. (7) Diabetes Status: Chronic Problem Text: Had relative hypoglycemia this am Says has symptoms of hypoglycemia when his sugars go below 120. will decrease night dose of levemir. (8) Hypertension Status: Chronic (9) Anxiety Status: Chronic Problem Text: continue with zoloft and mirtazepine. (10) Obesity Status: Chronic (11) Hypothyroid Status: Chronic Problem Text: continue with synthroid (12) Pulmonary hypertension Status: Chronic (13) Right heart failure Status: Acute Problem Text: acute on chronic will continue with IV lasix. (14) Acute respiratory failure with hypoxia Problem Text: due to CHF exacerbation and fluid overload. continues to require 3 to 4 liters of oxygen. Patient saturates 82% at rest in room air. pateint will need to go home with home oxygen. Plan/VTE VTE Prophylaxis Ordered?: Yes VS, I&O, 24H, Fishbone Vital Signs/I&O Vital Signs Date Time Temp Pulse Resp B/P (MAP) Pulse Ox O2 Delivery O2 Flow Rate FiO2 06/19/17 09:17 90 110/67 06/19/17 08:00 97.2 18 94 Nasal Cannula 3.0 I&O- Last 24 Hours up to 6 AM 06/19/17 06:00 Intake Total 1320 ml Output Total 2150 ml Balance -830 ml Laboratory Data 24H LABS Laboratory Tests 2 06/18/17 12:32: Bedside Glucose (Misc Panel) 249H 06/18/17 17:12: Bedside Glucose (Misc Panel) 217H 06/18/17 20:23: Bedside Glucose (Misc Panel) 249H 06/19/17 05:25: White Blood Count 12.4H, Red Blood Count 4.29L, Hemoglobin 13.0L, Hematocrit 40.7L, Mean Corpuscular Volume 95.0, Mean Corpuscular Hemoglobin 30.2, Mean Corpuscular Hemoglobin Concent 31.8L, Red Cell Distribution Width 13.4, Platelet Count 157, Neutrophils (%) (Auto) 64.0, Lymphocytes (%) (Auto) 26.2, Monocytes (%) (Auto) 5.0, Eosinophils (%) (Auto) 2.7, Basophils (%) (Auto) 0.6, Neutrophils # (Auto) 8.0H, Lymphocytes # (Auto) 3.5, Monocytes # (Auto) 0.6, Eosinophils # (Auto) 0.3, Basophils # (Auto) 0.1, Large Unclassified Cells % 1.6 , Large Unclassified Cells # 0.2, Prothrombin Time 24.3H, Prothromb Time International Ratio 2.10, Anion Gap 4L, Glomerular Filtration Rate > 60.0, Blood Urea Nitrogen 30H, Creatinine 1.23, Sodium Level 137, Potassium Level 4.1 , Chloride Level 96L, Carbon Dioxide Level 37H, Calcium Level 8.7L, Magnesium Level 2.6H CBC/BMP Laboratory Tests 06/19/17 05:25 Red Blood Count 4.29 L, Mean Corpuscular Volume 95.0, Mean Corpuscular Hemoglobin 30.2, Mean Corpuscular Hemoglobin Concent 31.8 L, Red Cell Distribution Width 13.4, Neutrophils (%) (Auto) 64.0, Lymphocytes (%) (Auto) 26.2, Monocytes (%) (Auto) 5.0, Eosinophils (%) (Auto) 2.7, Basophils (%) (Auto ) 0.6, Neutrophils # (Auto) 8.0 H, Lymphocytes # (Auto) 3.5, Monocytes # (Auto) 0.6, Eosinophils # (Auto) 0.3, Basophils # (Auto) 0.1, Calcium Level 8.7 L Microbiology Microbiology 06/14/17 Blood Culture - Final, Complete NO GROWTH AFTER 5 DAYS 06/14/17 Blood Culture - Final, Complete NO GROWTH AFTER 5 DAYS GLADYS SARGENT MD Jun 19, 2017 10:14
[2017-06-19] MEDS ORDERED: WARFARIN SOD 3 MG TAB PO SCH (17:00)
[2017-06-19] MEDS: ROSUVASTATIN 10 MG TAB (CRESTOR) PO SCH (20:53)
[2017-06-19] MEDS ORDERED: LEVEMIR (INSULIN DETEMIR) 1 UNITS/0.01ML SC SCH (21:00)
[2017-06-20 04:00] VITALS: BP 148/67
[2017-06-20 05:06] LABS: BASO % 0.4 % (0.0-1.0); EOS # 0.3 K/mm3 (0.0-0.50); EOS % 2.2 % (0.0-3.0); LARGE UNSTAINED CELL # 0.2 K/mm3 (0.0-0.4); LARGE UNSTAINED CELL % 1.5 % (0.0-4.0); LYMPH # 2.7 K/mm3 (1.5-4.5); LYMPH % 20.7 % (24.0-44.0); MEAN CORPUSCULAR HEMOGLOBIN 31.3 pg (27.0-33.0); MEAN CORPUSCULAR VOLUME 92.1 fl (80.0-96.0); MONO # 0.6 K/mm3 (0.0-0.8); MONO % 4.6 % (0.0-5.0); NEUTROPHILS # 9.3 K/mm3 (1.8-7.7); NEUTROPHILS % 70.7 % (36.0-66.0); PLATELET COUNT, AUTOMATED 170 k/mm3 (150-450); RED CELL DISTRIBUTION WIDTH 12.9 % (11.5-14.5); WHITE BLOOD COUNT 13.2 K/mm3 (4.0-10.0)
[2017-06-20 05:19] LABS: INR 2.78
[2017-06-20 05:24] LABS: CALCIUM LEVEL 8.8 MG/DL (8.8-10.2); CREATININE FOR GFR 1.27 MG/DL (0.70-1.30); GLOMERULAR FILTRATION RATE 59.7 (>42); MAGNESIUM LEVEL 2.5 MG/DL (1.8-2.4); POTASSIUM SERUM 3.7 MEQ/L (3.5-5.1)
[2017-06-20] MEDS: LEVOTHYROXINE 75MCG TABLET (0.075MG) PO SCH (06:03)
[2017-06-20] MEDS: LEVOTHYROXINE 100MCG TABLET (0.1MG) PO SCH (06:03)
[2017-06-20] MEDS: SLF 3 ML SYR IV SCH (06:03)
[2017-06-20] MEDS: LEVALBUTEROL 1.25 MG/0.5 ML CONCENTRATE NEB INH SCH (07:14)
[2017-06-20] MEDS: BUDESONIDE 0.5 MG/2 ML INHALATION SUSPENSION INH SCH (07:14)
[2017-06-20] MEDS: HumaLOG INSULIN (NovoLOG) PER UNIT SC SCH (07:35)
[2017-06-20] MEDS: metOLazone 5 MG TAB PO SCH (07:35)
[2017-06-20 08:00] VITALS: BP 125/65
[2017-06-20] MEDS: FUROSEMIDE 40 MG/4 ML VIAL (J1940) IV SCH (08:55)
[2017-06-20 08:56] VITALS: BP 125/65
[2017-06-20] MEDS: CARVedilol 12.5 MG TAB PO SCH (08:56)
[2017-06-20] MEDS: ASPIRIN 81 MG ENTERIC TAB PO SCH (08:56)
[2017-06-20] MEDS: HEPARIN SOD (PORCINE) 5000 UNITS/ML VIAL SC SCH (08:56)
[2017-06-20] MEDS: MIRTAZAPINE 15 MG TAB PO SCH (08:56)
[2017-06-20] MEDS: SERTRALINE 100 MG TAB PO SCH (08:57)
[2017-06-20] MEDS: SENOKOT S TAB PO SCH (08:57)
[2017-06-20] MEDS: LEVEMIR (INSULIN DETEMIR) 1 UNITS/0.01ML SC SCH (08:57)
[2017-06-20] MEDS: CARVedilol 3.125 MG TAB PO SCH (08:57)
[2017-06-20] MEDS ORDERED: LEVA12INH INH (09:34)
[2017-06-20] MEDS ORDERED: COUM1TAB19 PO (09:34)
[2017-06-20] MEDS ORDERED: CORE6.25 PO (09:34)
[2017-06-20] MEDS ORDERED: CARV12.5 PO (09:34)
[2017-06-20] MEDS ORDERED: TORS20TA2 PO (09:36)
[2017-06-20 09:42] VITALS: O2SAT 88; O2SAT 90
[2017-06-20] MEDS ORDERED: IPRA2IN INH (09:46)
--- NOTE | 2017-06-22 05:57 | DSES ---
DATE OF ADMISSION: 06/14/2017 DATE OF DISCHARGE: 06/20/2017 PRIMARY CARE PROVIDER: Dr. Sinclair. AUTOMATION SOFTWARE ENGINEER: Dr. Emmanuel in [facility]. DISCHARGE DIAGNOSES: 1. Acute hypoxic respiratory failure requiring 4-5 liters of oxygen. 2. Combined systolic and diastolic and right-sided heart failure with acute exacerbation, ejection fraction (EF) of 45%. 3. Pulmonary hypertension. 4. Atrial flutter/fibrillation, started on Coumadin. 5. Coronary artery disease status post coronary artery bypass graft (CABG) and stents in the past. 6. Peripheral arterial disease status post stenting in the right leg. 7. Diabetes. 8. Hypertension. 9. Anxiety. 10. Obesity. 11. Hypothyroid. 12. Obstructive sleep apnea (ELIAS). 13. Elevated troponins due to congestive heart failure and tachycardia. 14. Acute kidney injury resolved. DISCHARGE MEDICATIONS: - Coreg 12.5 mg by mouth twice a day, Coreg 6.25 mg by mouth twice a day, total of 18.75 mg twice a day - levalbuterol 0.63 mg inhalation routine every six hours - ipratropium bromide 0.5 mg nebulizer solution inhalation every six hours - torsemide 40 mg by mouth twice a day - Coumadin 3 mg by mouth daily - aspirin 81 mg daily - fish oil 1200 mg by mouth daily - Toujeo insulin 30 units twice a day - insulin aspart as per sliding scale - Synthroid 175 mcg by mouth daily - lisinopril 10 mg by mouth daily - mirtazapine 30 mg at bedtime - nitroglycerin 0.4 mg sublingual as needed for chest pain - rosuvastatin 40 mg at bedtime - sertraline 100 mg by mouth daily HOSPITAL COURSE: This is a 72-year-old male who presented to the hospital with increasing shortness of breath over the past one month, worse over the past one week, along with chest pressure for the past three days. The patient had visited urgent care twice in the past month for shortness of breath and was prescribed nebulizers which did help the patient temporarily; however, over the past one week, nothing was helping with his breathing trouble and over the past three days he has been extremely short of breath with chest tightness and leg swelling. In the emergency room on arrival, he was noted to be in supraventricular tachycardia with a rate of about 140. He was also noted to have bipedal edema. He was extremely hypoxic, saturating to about 86-87% with respiratory rate of 22, and a pulse of 143. The patient was diagnosed with supraventricular tachycardia, acute respiratory failure and congestive heart failure. The patient was given two doses of intravenous (IV) Lasix with about 600 mL of urine output. Also given several treatments with nebulizers which significantly improved his shortness of breath. Subsequently, the patient was admitted under the hospitalist service for congestive heart failure exacerbation and severe hypoxia and acute respiratory failure. The patient's chest x-ray in the emergency room showed bilateral effusions, pulmonary vascular congestion, as well as possible pneumonia, so the patient was empirically started on antibiotics. The patient did finish a five-day course of ceftriaxone and azithromycin for possible community-acquired pneumonia; however, later on during hospitalization, the patient had a CT scan of the chest done which did not reveal any pneumonia, showed features of fluid overload. The patient was started on aggressive diuresis in the hospital, as well as Coreg for rate control. The patient's heart rate slowly became controlled and with his diuresis, his symptoms improved. However, the patient continued to require 3-4 liters of oxygen throughout the hospitalization. The patient was saturating only 82-84% at rest on room air, so patient was prescribed home oxygen at discharge. With four liters, his oxygen saturation was 87-88%, so he was prescribed home oxygen at a rate of five liters to be used 03/05. On the day of discharge, the patient was comfortable. His symptoms were slowly improving. He was functionally close to his baseline, and his vital signs were stable. PHYSICAL EXAMINATION: VITAL SIGNS: Temperature 96.4, pulse 75, respiratory rate 20, blood pressure 125/65, pulse oximetry 90% with five liters nasal cannula. GENERAL: Patient awake, alert, oriented times three, lying down in chair in no acute distress. HEENT: Normocephalic, atraumatic. Moist mucous membranes. Anicteric eyes. CHEST: Bilateral basal crackles, expiratory wheezes and overall poor air entry. CARDIOVASCULAR: S1, S2. Irregular. No rub, murmur or gallop. ABDOMEN: Obese, soft, nontender. Bowel sounds present. EXTREMITIES: One plus edema. LABORATORY DATA: WBC 13.2, hemoglobin 13.7, platelets 117. Sodium 135, potassium 3.5, chloride 94, bicarbonate 40, BUN 32, creatinine 1.27, glucose 171, calcium 8.8, magnesium 2.5. TSH 3.45. BNP 79.4. Troponin was 0.19, 0.18, 0.14, and 0.17. MICROBIOLOGY: Blood culture no growth after five days. IMAGING: CT chest on 06/18/2017, showed small to moderate bilateral pleural effusions along with fluid trapped in the fissures of the lungs, right greater than left, including pseudotumor overlaying the right midlung zone due to fluid trapped in the posterior aspect of the right major fissure, cardiomegaly with associated pulmonary vascular congestion, mediastinal and hilar lymphadenopathy with lymph nodes measuring up to approximately 2 cm, short-axis diameter, which were felt to be reactive. Chronic interstitial changes, atherosclerotic changes in the thoracic aorta and coronary arteries. Cholelithiasis. Normal bilateral adrenal glands. No pericardial effusion. Echocardiogram showed left ventricular ejection fraction of 45%, severe pulmonary hypertension with pressure of 58, left ventricular hypertrophy mild. There were no wall motion abnormalities. Right ventricular systolic pressure was moderately to severely increased. Inferior vena cava was mildly dilated with markedly reduced respiratory collapse consistent with right heart failure. There was proximal inferior and inferoseptal akinesis. There was elevated mean left atrial pressure. There was normal right ventricular size with right ventricular hypokinesia. DISPOSITION: The patient is discharged home with home oxygen. DISCHARGE INSTRUCTIONS: Patient to followup with primary care provider in two weeks. Patient to followup with solar system installer, Dr. Emmanuel, within one week. Two-gram sodium diet and consistent carbohydrate diet. Fluid restriction 1.5 liters per day. Activity as tolerated. Patient to followup for international normalized ratio (INR) check either with solar system installer or primary care provider in two days.
== END 2017-06-20 10:55 | disposition home or self-care (01) | DRG 291 ==
LOC: M ED 05:24 → M ED INP 08:06 → M ICU 12:46 → M PCU 06-15 02:33 → M PED 06-15 09:56 → M PCU 06-15 09:58
PROVIDERS: ADMIT Internal Medicine Nephrology; ATTEND Internal Medicine Nephrology
DX: I13.0 Hypertensive heart and chronic kidney disease with heart failure and stage 1 through stage 4 chronic kidney disease, or unspecified chronic kidney disease (principal); J18.9 Pneumonia, unspecified organism; I50.43 Acute on chronic combined systolic (congestive) and diastolic (congestive) heart failure; J96.01 Acute respiratory failure with hypoxia; I47.1 Supraventricular tachycardia; I48.92 Unspecified atrial flutter; N17.9 Acute kidney failure, unspecified; I25.10 Atherosclerotic heart disease of native coronary artery without angina pectoris; E11.51 Type 2 diabetes mellitus with diabetic peripheral angiopathy without gangrene; E03.9 Hypothyroidism, unspecified; I27.2 Other secondary pulmonary hypertension; N18.3 Chronic kidney disease, stage 3 (moderate); E66.9 Obesity, unspecified; E11.649 Type 2 diabetes mellitus with hypoglycemia without coma; E78.5 Hyperlipidemia, unspecified; G47.33 Obstructive sleep apnea (adult) (pediatric); F41.0 Panic disorder [episodic paroxysmal anxiety]; Z95.820 Peripheral vascular angioplasty status with implants and grafts; Z95.5 Presence of coronary angioplasty implant and graft; Z79.82 Long term (current) use of aspirin; Z79.4 Long term (current) use of insulin; Z79.899 Other long term (current) drug therapy; Z88.8 Allergy status to other drugs, medicaments and biological substances; Z87.891 Personal history of nicotine dependence

== ENCOUNTER → 2017-07-09 | Outpatient (CLI) | payer OTHER ==
[~2017-07-09] MED LIST changes: +CARV12.5 PO; +CORE6.25 PO; +COUM1TAB19 PO; +FISH120012 PO; +IPRA2IN INH; +LEVA12INH INH; +SERT-138 PO; +SYNT175T2 PO; +TOUJ1.2I SC
[2017-07-09 15:46] LABS: CREATININE FOR GFR 1.27 MG/DL (0.70-1.30); GLOMERULAR FILTRATION RATE 59.7 (>42); POTASSIUM SERUM 3.5 MEQ/L (3.5-5.1)
== END ==
LOC: M LAB 14:46
PROVIDERS: ATTEND Physician Assistant
DX: I50.42 Chronic combined systolic (congestive) and diastolic (congestive) heart failure (principal)

== ENCOUNTER → 2017-07-12 | Outpatient (CLI) | payer OTHER | LOC: M LAB 12:05 | PROVIDERS: ATTEND Internal Medicine Cardiovascular Disease | DX: Z79.01 Long term (current) use of anticoagulants (principal) ==

== ENCOUNTER → 2017-08-06 | Outpatient (CLI) | payer OTHER ==
[2017-08-06 14:43] LABS: INR 1.7
== END ==
LOC: M LAB 13:41
PROVIDERS: ATTEND Internal Medicine Cardiovascular Disease
DX: Z79.01 Long term (current) use of anticoagulants (principal)

== ENCOUNTER → 2017-08-27 | Outpatient (CLI) | payer OTHER ==
[2017-08-27 15:06] LABS: INR 2.49
== END ==
LOC: M LAB 14:26
PROVIDERS: ATTEND Internal Medicine Cardiovascular Disease
DX: Z51.81 Encounter for therapeutic drug level monitoring (principal); Z79.01 Long term (current) use of anticoagulants

== ENCOUNTER → 2017-09-03 | Outpatient (CLI) | payer OTHER ==
[2017-09-03 14:14] LABS: INR 1.75
== END ==
LOC: M LAB 13:49
PROVIDERS: ATTEND Internal Medicine Cardiovascular Disease
DX: Z79.01 Long term (current) use of anticoagulants (principal)

== ENCOUNTER → 2017-09-10 | Outpatient (CLI) | payer OTHER ==
[2017-09-10 14:39] LABS: INR 2.32
== END ==
LOC: M LAB 13:43
PROVIDERS: ATTEND Internal Medicine Cardiovascular Disease
DX: Z79.01 Long term (current) use of anticoagulants (principal); I48.92 Unspecified atrial flutter

== ENCOUNTER → 2017-09-24 | Outpatient (CLI) | payer OTHER ==
[~2017-09-24] MED LIST changes: +NITR100C39 PO; +SPIR25TA2
[2017-09-24 14:40] LABS: INR 1.94
== END ==
LOC: M LAB 13:56
PROVIDERS: ATTEND Internal Medicine Cardiovascular Disease
DX: Z79.01 Long term (current) use of anticoagulants (principal)

== ENCOUNTER 2017-09-25 18:51 | Emergency (ER) | payer OTHER ==
[~2017-09-25] VITALS: Ht 167.6 cm; Wt 104.5 kg
[~2017-09-25 18:51] MED LIST changes: -NITR100C39 PO; -SPIR25TA2
[2017-09-25] MEDS ORDERED: TORS20TA2 PO (19:00)
[2017-09-25] MEDS ORDERED: SPIR25TA2 (19:00)
[2017-09-25 19:39] LABS: BASO # 0.1 10^3/uL (0.0-0.2); BASO % 0.5 % (0.0-1.0); EOS # 0.3 10^3/uL (0.0-0.50); IMMATURE GRANULOCYTE % 0.4 % (0-0); LYMPH # 3.1 10^3/uL (1.5-4.5); LYMPH % 22.5 % (24.0-44.0); MEAN CORPUSCULAR HEMOGLOBIN 29.2 pg (27.0-33.0); MEAN CORPUSCULAR HGB CONC 32.1 g/dl (32.0-36.5); MONO % 6.9 % (0.0-5.0); NEUTROPHILS # 9.3 10^3/uL (1.8-7.7); NEUTROPHILS % 67.7 % (36.0-66.0); PLATELET COUNT, AUTOMATED 168 10^3/uL (150-450); RED CELL DISTRIBUTION WIDTH 13.3 % (11.5-14.5); WHITE BLOOD COUNT 13.8 10^3/uL (4.0-10.0)
[2017-09-25 19:57] LABS: INR 1.84
[2017-09-25 20:10] LABS: ALBUMIN 3.9 GM/DL (3.2-5.2); ALBUMIN/GLOBULIN RATIO 0.95 (1.00-1.93); BILIRUBIN,TOTAL 0.3 MG/DL (0.2-1.0); CALCIUM LEVEL 8.3 MG/DL (8.8-10.2); CREATININE FOR GFR 1.67 MG/DL (0.70-1.30); GLOMERULAR FILTRATION RATE 43.5 (>42); POTASSIUM SERUM 4.1 MEQ/L (3.5-5.1)
[2017-09-25] MEDS ORDERED: HumuLIN R (REGULAR) INSULIN (NovoLIN R) **100U/ML** PER UNIT SC ONE (20:30)
[2017-09-25] MEDS ORDERED: NS 500 ML IV ONE (21:00)
--- NOTE | 2017-09-25 21:00 | REPUSA ---
CT of the abdomen and pelvis without contrast Clinical statement: Gross hematuria. Technique: Multiple axial CT images were obtained from the base of the lungs to the floor of the pelv is utilizing 5 mm axial slices without administration of contrast. Coronal and sagittal reconstructio ns were also obtained. No comparison is available. Findings: Chest: The visualized lung bases demonstrates a small right-sided pleural effusion and right lower lo be infiltrate. Abdomen: The kidneys are normal in size bilaterally. There is no evidence of hydronephrosis or nephro lithiasis. The gallbladder is filled with gallstones. No pericholecystic inflammatory changes are see n. The liver and spleen are enlarged. The liver measures 29.6 cm in longest diameter, and spleen brittni ures 16.6 cm in longest diameter. No focal hepatic or splenic masses are appreciated. The liver demon strates nodular contour however. The pancreas and adrenal glands are unremarkable. The aorta demonstr ates moderate atherosclerotic calcifications. There is borderline infrarenal abdominal aortic aneurys m of the location, measuring up to 2.9 x 3.0 cm. Several prominent peripancreatic lymph nodes are not ed. For example, a portahepatic lymph node measures 1.7 x 1.1 cm. There is no abdominal ascites. Pelvis: The bowel is unremarkable, with no obstructive or inflammatory changes. The appendix is koko l. The urinary bladder is within normal limits. There is no pelvic lymphadenopathy or ascites. The ot her pelvic structures appear unremarkable. Bones: There are no suspicious osseous abnormalities seen. There is mild degenerative disc disease at L1/L2. There is moderate degenerative disc disease at L5/S1, with a 8mm anterior spondylolisthesis n oted. This is caused by bilateral pars interarticularis defects at this level. Impression: 1. No evidence of hydronephrosis or nephrolithiasis. The urinary bladder is unremarkable. No discrete findings to explain the patient's hematuria. 2. Cholelithiasis, without evidence of acute cholecystitis. 3. Hepatosplenomegaly, with hepatic changes consistent with cirrhosis. 4. Small right lower lobe infiltrate and pleural effusion. 5. Several small peripancreatic enlarged lymph nodes, of unknown uncertain clinical significance. 6. Grade 1 anterior spondylolisthesis of L5 upon S1.
[2017-09-25] MEDS ORDERED: NITR100C39 PO (21:57)
[2017-09-25 22:04] VITALS: BP 144/63
== END 2017-09-25 22:08 | disposition home or self-care (01) ==
LOC: M ED 20:05
DX: N39.0 Urinary tract infection, site not specified (principal); R31.9 Hematuria, unspecified; J90 Pleural effusion, not elsewhere classified; E11.9 Type 2 diabetes mellitus without complications; I11.0 Hypertensive heart disease with heart failure; I50.9 Heart failure, unspecified; G47.30 Sleep apnea, unspecified; E03.9 Hypothyroidism, unspecified; Z86.73 Personal history of transient ischemic attack (TIA), and cerebral infarction without residual deficits; Z95.1 Presence of aortocoronary bypass graft; Z95.5 Presence of coronary angioplasty implant and graft; Z79.899 Other long term (current) drug therapy; Z79.82 Long term (current) use of aspirin; Z79.4 Long term (current) use of insulin; Z79.01 Long term (current) use of anticoagulants; Z88.8 Allergy status to other drugs, medicaments and biological substances; Z87.891 Personal history of nicotine dependence

== ENCOUNTER → 2017-10-01 | Outpatient (CLI) | payer OTHER ==
[~2017-10-01] MED LIST changes: +NITR100C39 PO; +SPIR25TA2
[2017-10-01 14:33] LABS: INR 1.93
== END ==
LOC: M LAB 13:57
PROVIDERS: ATTEND Internal Medicine Cardiovascular Disease
DX: I48.92 Unspecified atrial flutter (principal); Z79.01 Long term (current) use of anticoagulants

== ENCOUNTER → 2017-10-14 | Outpatient (CLI) | payer OTHER ==
[2017-10-14 15:13] LABS: INR 1.83; PROTHROMBIN TIME 21.7 SECONDS (12.4-14.5)
== END ==
LOC: M LAB 14:23
DX: I48.92 Unspecified atrial flutter (principal); Z79.01 Long term (current) use of anticoagulants
CPT/HCPCS: 85610

== ENCOUNTER → 2017-10-22 | Outpatient (CLI) | payer OTHER ==
[2017-10-22 13:42] LABS: INR 2.13; PROTHROMBIN TIME 24.6 SECONDS (12.4-14.5)
== END ==
LOC: M LAB 12:35
DX: Z79.01 Long term (current) use of anticoagulants (principal)
CPT/HCPCS: 85610

== ENCOUNTER → 2017-11-12 | Outpatient (CLI) | payer OTHER ==
[2017-11-12 11:56] LABS: INR 2.32; PROTHROMBIN TIME 26.4 SECONDS (12.4-14.5)
== END ==
LOC: M LAB 11:21
DX: Z51.81 Encounter for therapeutic drug level monitoring (principal); Z79.01 Long term (current) use of anticoagulants; I48.92 Unspecified atrial flutter
CPT/HCPCS: 85610

== ENCOUNTER → 2017-12-03 | Outpatient (CLI) | payer OTHER ==
[2017-12-03 14:28] LABS: INR 3.86; PROTHROMBIN TIME 39.9 SECONDS (12.4-14.5)
== END ==
LOC: M LAB 13:39
DX: Z79.01 Long term (current) use of anticoagulants (principal); I48.92 Unspecified atrial flutter
CPT/HCPCS: 85610

== ENCOUNTER → 2017-12-16 | Outpatient (CLI) | payer OTHER ==
[2017-12-16 14:00] LABS: INR 2.27; PROTHROMBIN TIME 25.9 SECONDS (12.4-14.5)
== END ==
LOC: M LAB 13:23
DX: Z51.81 Encounter for therapeutic drug level monitoring (principal); Z79.01 Long term (current) use of anticoagulants; I48.92 Unspecified atrial flutter
CPT/HCPCS: 85610

== ENCOUNTER → 2018-01-24 | Outpatient (CLI) | payer OTHER ==
[2018-01-24 16:25] LABS: INR 2.28
== END ==
LOC: M LAB 15:56
DX: Z51.81 Encounter for therapeutic drug level monitoring (principal); Z79.01 Long term (current) use of anticoagulants; I48.92 Unspecified atrial flutter
CPT/HCPCS: 85610

== ENCOUNTER → 2018-02-07 | Outpatient (CLI) | payer OTHER ==
[2018-02-07 14:06] LABS: INR 2.88; PROTHROMBIN TIME 31.4 SECONDS (12.4-14.5)
== END ==
LOC: M LAB 13:32
DX: Z51.81 Encounter for therapeutic drug level monitoring (principal); Z79.01 Long term (current) use of anticoagulants
CPT/HCPCS: 85610

== ENCOUNTER → 2018-02-22 | Outpatient (CLI) | payer OTHER ==
[2018-02-22 16:39] LABS: INR 3.05; PROTHROMBIN TIME 32.9 SECONDS (12.4-14.5)
== END ==
LOC: M LAB 15:41
DX: Z51.81 Encounter for therapeutic drug level monitoring (principal); I48.92 Unspecified atrial flutter; Z79.01 Long term (current) use of anticoagulants
CPT/HCPCS: 85610

== ENCOUNTER → 2018-03-24 | Outpatient (CLI) | payer OTHER ==
[2018-03-24 13:18] LABS: INR 3.72; PROTHROMBIN TIME 38.7 SECONDS (12.4-14.5)
== END ==
LOC: M LAB 12:43
DX: Z79.01 Long term (current) use of anticoagulants (principal)
CPT/HCPCS: 85610

== ENCOUNTER → 2018-04-11 | Outpatient (CLI) | payer OTHER ==
[2018-04-11 16:50] LABS: INR 2.41; PROTHROMBIN TIME 26.7 SECONDS (12.1-14.4)
== END ==
LOC: M LAB 16:00
DX: Z51.81 Encounter for therapeutic drug level monitoring (principal); Z79.01 Long term (current) use of anticoagulants
CPT/HCPCS: 85610

== ENCOUNTER → 2018-05-12 | Outpatient (CLI) | payer OTHER ==
[2018-05-12 15:07] LABS: INR 1.99
== END ==
LOC: M LAB 14:16
DX: Z51.81 Encounter for therapeutic drug level monitoring (principal); Z79.01 Long term (current) use of anticoagulants
CPT/HCPCS: 85610

== ENCOUNTER → 2018-06-24 | Outpatient (CLI) | payer OTHER ==
[2018-06-24 14:38] LABS: INR 2.28; PROTHROMBIN TIME 25.6 SECONDS (12.1-14.4)
== END ==
LOC: M LAB 14:02
DX: Z51.81 Encounter for therapeutic drug level monitoring (principal); Z79.01 Long term (current) use of anticoagulants; I48.92 Unspecified atrial flutter
CPT/HCPCS: 85610

== ENCOUNTER → 2018-07-15 | Outpatient (CLI) | payer OTHER ==
[2018-07-15 17:23] LABS: INR 2.86; PROTHROMBIN TIME 30.6 SECONDS (12.1-14.4)
== END ==
LOC: M LAB 16:18
DX: Z51.81 Encounter for therapeutic drug level monitoring (principal); Z79.01 Long term (current) use of anticoagulants; I48.92 Unspecified atrial flutter
CPT/HCPCS: 85610

== ENCOUNTER → 2018-08-04 | Outpatient (CLI) | payer OTHER ==
[2018-08-04 15:20] LABS: PROTHROMBIN TIME 29.2 SECONDS (12.1-14.4)
== END ==
LOC: M LAB 14:36
DX: Z79.01 Long term (current) use of anticoagulants (principal); I48.92 Unspecified atrial flutter
CPT/HCPCS: 85610

== ENCOUNTER → 2018-09-08 | Outpatient (CLI) | payer OTHER ==
[2018-09-08 14:40] LABS: INR 3.13; PROTHROMBIN TIME 32.9 SECONDS (12.1-14.4)
== END ==
LOC: M LAB 13:48
DX: I48.92 Unspecified atrial flutter (principal); Z79.01 Long term (current) use of anticoagulants
CPT/HCPCS: 85610

== ENCOUNTER → 2018-11-15 | Outpatient (CLI) | payer MEDICARE ==
[~2018-11-15] MED LIST changes: +FISH120016 PO; +SPIR-10; -SPIR25TA2
[2018-11-15 14:03] LABS: INR 2.17; PROTHROMBIN TIME 24.6 SECONDS (12.1-14.4)
== END ==
LOC: M LAB 13:17
PROVIDERS: ATTEND Internal Medicine Cardiovascular Disease
DX: I48.92 Unspecified atrial flutter (principal); Z79.01 Long term (current) use of anticoagulants

== ENCOUNTER → 2018-12-15 | Outpatient (CLI) | payer MEDICARE ==
[2018-12-15 15:47] LABS: INR 3.12; PROTHROMBIN TIME 32.8 SECONDS (12.1-14.4)
== END ==
LOC: M LAB 14:41
PROVIDERS: ATTEND Internal Medicine Cardiovascular Disease
DX: Z51.81 Encounter for therapeutic drug level monitoring (principal); Z79.01 Long term (current) use of anticoagulants; I48.92 Unspecified atrial flutter

== ENCOUNTER → 2019-01-17 | Outpatient (CLI) | payer MEDICARE ==
[~2019-01-17] MED LIST changes: -CRES20TA PO; +CRES20TA2 PO; +SERT-141 PO; -SERT50TA PO
[2019-01-17 15:57] LABS: INR 2.62; PROTHROMBIN TIME 28.6 SECONDS (12.1-14.4)
== END ==
LOC: M LAB 15:29
PROVIDERS: ATTEND Internal Medicine Cardiovascular Disease
DX: I48.92 Unspecified atrial flutter (principal); Z79.01 Long term (current) use of anticoagulants

== ENCOUNTER → 2019-02-22 | Outpatient (CLI) | payer MEDICARE ==
[2019-02-22 14:15] LABS: INR 3.26
== END ==
LOC: M LAB 13:32
PROVIDERS: ATTEND Internal Medicine Cardiovascular Disease
DX: I48.92 Unspecified atrial flutter (principal); Z79.01 Long term (current) use of anticoagulants

== ENCOUNTER → 2019-03-10 | Outpatient (CLI) | payer MEDICARE ==
[2019-03-10 13:49] LABS: INR 2.09; PROTHROMBIN TIME 23.9 SECONDS (12.1-14.4)
== END ==
LOC: M LAB 13:04
PROVIDERS: ATTEND Internal Medicine Cardiovascular Disease
DX: I48.92 Unspecified atrial flutter (principal); Z79.01 Long term (current) use of anticoagulants

== ENCOUNTER → 2019-03-31 | Outpatient (CLI) | payer MEDICARE ==
[2019-03-31 13:21] LABS: INR 3.54; PROTHROMBIN TIME 35.5 SECONDS (11.8-14.0)
== END ==
LOC: M LAB 11:54
PROVIDERS: ATTEND Internal Medicine
DX: Z79.01 Long term (current) use of anticoagulants (principal); I48.92 Unspecified atrial flutter

== ENCOUNTER → 2019-05-05 | Outpatient (CLI) | payer MEDICARE ==
[2019-05-05 14:18] LABS: INR 1.81; PROTHROMBIN TIME 20.7 SECONDS (11.8-14.0)
== END ==
LOC: M LAB 13:23
PROVIDERS: ATTEND Internal Medicine Cardiovascular Disease
DX: I48.92 Unspecified atrial flutter (principal); Z79.01 Long term (current) use of anticoagulants

== ENCOUNTER → 2019-05-23 | Outpatient (CLI) | payer MEDICARE ==
[2019-05-23 12:01] LABS: INR 3.22; PROTHROMBIN TIME 32.9 SECONDS (11.8-14.0)
== END ==
LOC: M LAB 11:08
PROVIDERS: ATTEND Internal Medicine Cardiovascular Disease
DX: I48.92 Unspecified atrial flutter (principal); Z79.01 Long term (current) use of anticoagulants

== ENCOUNTER → 2019-06-21 | Outpatient (CLI) | payer MEDICARE ==
[2019-06-21 15:27] LABS: INR 1.86; PROTHROMBIN TIME 21.2 SECONDS (11.8-14.0)
== END ==
LOC: M LAB 14:34
PROVIDERS: ATTEND Internal Medicine Cardiovascular Disease
DX: I48.92 Unspecified atrial flutter (principal); Z79.01 Long term (current) use of anticoagulants

== ENCOUNTER → 2019-07-03 | Outpatient (CLI) | payer MEDICARE ==
[2019-07-03 14:53] LABS: INR 2.63
== END ==
LOC: M LAB 14:10
PROVIDERS: ATTEND Internal Medicine Cardiovascular Disease
DX: Z79.01 Long term (current) use of anticoagulants (principal)

== ENCOUNTER → 2019-09-11 | Outpatient (CLI) | payer MEDICARE | LOC: M PT 13:28 | PROVIDERS: ATTEND Nurse Practitioner Adult Health | DX: Z02.89 Encounter for other administrative examinations (principal); R26.81 Unsteadiness on feet ==

== ENCOUNTER → 2019-10-02 | Outpatient (CLI) | payer MEDICARE ==
--- NOTE | 2019-10-06 00:43 | ECWPNPC ---
PATIENT NAME: YOLA MARINA : 1945 GENDER: MALE VISIT DATE: 10/02/2019 DISCHARGE DATE: 10/02/19 1116 VISIT LOCKED DATE TIME: PHYSICIAN: HARSHIL TURNER RESOURCE: HARSHIL TURNER REASON FOR APPOINTMENT 1. BACK PAIN RADIATING DOWN RT LOWER EXTREMITY HISTORY OF PRESENT ILLNESS NEW PATIENT CONSULT: WHEN DID YOUR PAIN FIRST START? . BRIEFLY DESCRIBE HOW YOUR PAIN STARTED? . HOW DOES YOUR PAIN CHANGE WITH TIME? . DOES YOUR PAIN AWAKEN YOU FROM SLEEP? . HOW MANY HOURS OF SLEEP DO YOU NORMALLY GET? . ANY DIAGNOSTIC TESTING? . FACILITY WHERE TESTS WERE DONE? ____. PAIN TREATMENT TREATMENT YES CANCER HAVE YOU EVER HAD ANY TYPE OF CANCER?NO NO. 74-YEAR-OLD MALE IN FOR INITIAL PAIN CONSULT. HE'S BEEN EXPERIENCING LOW BACK PAIN WITH RIGHT-SIDED RADICULOPATHY FOR THE PAST YEAR. HE DOES ADMIT TO SEEING A CHIROPRACTOR AT ONE POINT AND ADMITS THAT THIS DID HELP ALLEVIATE HIS SYMPTOMS HOWEVER IT WAS VERY SHORT-LIVED. HE DOES ADMIT TO AN INJURY HE STATES THAT HE PICKED UP A PIECE OF WOOD THEN TWISTED AND INJURED HIS BACK. HE IS CURRENTLY ON GABAPENTIN 300 MG 3 TIMES A DAY AND TIZANIDINE 2 MG EVERY 8 HOURS NEEDED. HE DOES ADMIT THE TIZANIDINE HAS BEEN HELPFUL BUT FURTHER STATES THAT IT MAKES HIM FATIGUED WHEN HE TAKES IT. PAIN SCREENING: PATIENT HAS A COMPLAINT OF ACUTE OR CHRONIC PAIN :YES FALL RISK SCREENING: SCREENING : NO FALLS IN THE PAST YEAR. SOSA INVENTORY: QUESTIONNAIRE ASSESSEDTBD SCORE VALUE CALCULATED TBD CURRENT MEDICATIONS TAKING GABAPENTIN 300 MG CAPSULE 1 CAPSULE ORALLY THREE TIMES DAILY TAKING TIZANIDINE HCL 2 MG TABLET 1 TABLET NEEDED ORALLY THREE TIMES A DAY TAKING CRESTOR 20 MG TABLET 1 TABLET ORALLY ONCE A DAY TAKING LEVOTHYROXINE SODIUM 175 MCG TABLET 1 TABLET IN THE MORNING ON AN EMPTY STOMACH ORALLY ONCE A DAY TAKING SERTRALINE HCL 100 MG TABLET 1 1/2 TABLETS ORALLY ONCE A DAY TAKING MIRTAZAPINE 30 MG TABLET 1 TABLET AT BEDTIME ORALLY ONCE A DAY TAKING ASPIRIN ADULT LOW DOSE 81 MG TABLET DELAYED RELEASE 1 TABLET ORALLY ONCE A DAY TAKING FISH OIL 1200 MG CAPSULE 1 CAPSULE ORALLY ONCE A DAY TAKING NOVOLIN N 100 UNIT/ML SUSPENSION DIRECTED SUBCUTANEOUS 45 UNITS 2X DAILY TAKING TRULICITY 1.5 MG/0.5ML SOLUTION PEN-INJECTOR DIRECTED SUBCUTANEOUS WEEKLY TAKING NOVOLOG 100 UNIT/ML SOLUTION DIRECTED SUBCUTANEOUS 30 UNITS IN A.M. AND LUNCH AND 42 UNITS AT DINNER TAKING SPIRONOLACTONE 25 MG TABLET 1/2 TABLET ORALLY DAILY TAKING ENTRESTO 24-26 MG TABLET 1 TABLET ORALLY TWICE A DAY TAKING CARVEDILOL 12.5 MG TABLET 1 TABLET ORALLY TWICE A DAY TAKING CARVEDILOL 6.25 MG TABLET 1 TABLET ORALLY TWICE A DAY TAKING WARFARIN SODIUM 3 MG TABLET 1 TABLET ORALLY ONCE A DAY TAKING NITROSTAT 0.4 MG TABLET SUBLINGUAL DIRECTED SUBLINGUAL TAKING OXYGEN NASAL CANNULA 3 L CONTINUOUS NOT-TAKING TOUJEO MAX SOLOSTAR 300 UNIT/ML SOLUTION PEN-INJECTOR DIRECTED SUBCUTANEOUS NOT-TAKING NOVOLIN R 100 UNIT/ML SOLUTION DIRECTED INJECTION MEDICATION LIST REVIEWED AND RECONCILED WITH THE PATIENT PAST MEDICAL HISTORY 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 DIABETES, DIAGNOSED WITH UNSPECIFIED HEART DISEASE MOTHER: , CANCER OF THE BRAIN THAT MATASTISIZED, HYPERTENSION, OTHER MALIGNANT NEOPLASM OF UNSPECIFIED SITE 2DAUGHTER(S) . MOM HAD CANCEROLDEST SISTER-HEART [id number] SISTER-HEART DISEASE, COPD, CA ON LIPBROTHER-HEART DISEASEOLDEST DAUGHTER-HEALTHYYOUNGEST DAUGHTER-MS. SOCIAL HISTORY GENERAL: TOBACCO USE ARE YOU A:FORMER SMOKER HOW LONG HAS IT BEEN SINCE YOU LAST SMOKED?> 10 YEARS OTHERS AT HOME: SPOUSE, [id number]. HOUSING: OWNS HOME. EDUCATION LEVEL OF EDUCATION:HIGH SCHOOL DIET: REGULAR. LANGUAGE LANGUAGES SPOKEN:ICELANDIC DOMESTIC VIOLENCE DO YOU FEEL SAFE IN YOUR ENVIRONMENT?YES RECREATIONAL DRUG USE DRUG USE?NO EXERCISE: NO REGULAR EXERCISE. PATIENT: ____. LEARNING BARRIERS / SPECIAL NEEDS BARRIERS TO LEARNING?YES COMMENTS TROUBLE REMEMBERING THINGS HEARING IMPAIRED?YES : SLIGHT EARING LOSS BILATERAL, NO CHAMPAGNE'S VISION IMPAIRED?YES :CORRECTIVE LENSES READING GLASSES COGNITIVELY IMPAIRED?NO READINESS TO LEARN?YES LEARNING PREFERENCES?NO LEARNING CAPABILITIES PRESENT?YES EMOTIONAL BARRIERS?NO SPECIAL DEVICES?YES :CANE INFANT LEAD TEACHER NEEDED?YES PAIN CLINIC PFS, CLERGY, PUBLIC HEALTH REFERRALS HAS THE PATIENT BEEN EDUCATED REGARDING HIS/HER PLAN OF CARE?YES HAS THE PATIENT BEEN EDUCATED REGARDING PAIN, THE RISK FOR PAIN, THE IMPORTANCE OF EFFECTIVE PAIN MANAGEMENT, AND THE PAIN ASSESSMENT PROCESS?YES CLERGY REFERRAL NEEDED?NO WAS THE PROVIDER NOTIFIED OF ANY PERTINENT INFO?NO PFS REFERRAL NEEDED?NO PUBLIC HEALTH REFERRAL NEEDED?NO LATEX QUESTIONNAIRE LATEX ALLERGY : HAVE YOU EVER DEVELOPED ANY TYPE OF REACTION AFTER HANDLING LATEX PRODUCTS SUCH RUBBER GLOVES, CONDOMS, DIAPHRAGMS, BALLOONS, SOCKS, OR UNDERWEAR?NO LATEX ALLERGY : HAVE YOU EVER DEVELOPED ANY TYPE OF REACTION DURING OR AFTER DENTAL APPOINTMENT, VAGINAL/RECTAL EXAMINATION, SURGICAL PROCEDURE, OR ANY OTHER EXPOSURE?NO LATEX RISK : HAVE YOU EVER HAD ANY DIFFICULTY BREATHING OR HIVES AFTER EATING OR HANDLING ANY FRUITS, OR VEGETABLES; SUCH KIWI, BANANAS, STONE FRUITS, OR CHESTNUTSNO LATEX RISK : DO YOU HAVE A PREVIOUS PERSONAL HISTORY OF MORE THAN NINE SURGERIES, SPINA BIFIDA, OR REPEATED CATHERIZATIONS? NO LATEX RISK : ARE YOU FREQUENTLY EXPOSED TO LATEX PRODUCTS IN YOUR OCCUPATION?NO DATE ASKED : 09/28/2019 CAFFEINE CAFFEINE USE?YES HOW OFTEN AND HOW MUCH? 1 CUP COFFEE DAILY AND SEVERAL DIET ICE TEAS A DAY ADVANCE DIRECTIVE ADVANCE DIRECTIVE DISCUSSED WITH PATIENT:YES HAS HCP AND POA - -NAN [phone] ALSO HAS A LIVING WILL TEMPLE [id number] YAZDANISM MARITAL STATUS: . 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 INFORMATION ENTERED FROM REFERRAL, NOT VERIFIED WITH PATIENT 09/26/19 LAS09/28/19 1007 PRE APPOINTMENT CALL MADE AND INFORMATION PROVIDED BY HIS . AD. HOSPITALIZATION/MAJOR DIAGNOSTIC PROCEDURE [place], CABG A. FIB STENT RIGHT LEG 6-8 YRS AGO REVIEW OF SYSTEMS REVIEWED BY: PROVIDER: CHRISTOPHER JOHNNY SET UP / OPERATOR-C . CONSTITUTIONAL: ANY CHANGE IN YOUR MEDICAL CONDITION? NO . CHILLS NO . FEVER NO . INFECTION: DO YOU HAVE NEW INFECTIONS? NO . DO YOU HAVE HISTORY OF MRSA? NO . MUSCULOSKELETAL: ANY NEW PATTERNS OF PAIN OR NUMBNESS? YES . SYTEMIC LUPUS NO . GASTROENTEROLOGY: ANY NEW CHANGE IN BOWEL CONTROL? NO . BARRETTS ESOPHAGUS NO . CIRRHOSIS NO . HEPATITIS NO . LIVER FAILURE NO . ACID REFLUX NO . UNEXPLAINED WEIGHT LOSS NO . GENITOURINARY: ANY NEW CHANGE IN BLADDER CONTROL? NO . IS THERE A CHANCE YOU COULD BE ? NO . HEMATOLOGY/LYMPH: DO YOU TAKE ANY BLOOD THINNERS? (FOR EXAMPLE- COUMADIN, PLAVIX, AGGRENOX, PLATEL, PRADAXA, OR XARELTO) YES . WHEN WAS YOUR LAST DOSE? DATE: TIME: . LOW PLATELET COUNT NO . SICKLE CELL DISEASE NO . VON WILLIEBRANDS NO . FACTOR V LEIDEN NO . THALLASEMIA NO . ANEMIA NO . EASY BRUISING YES SINCE ON COUMADIN . NEUROLOGY: HAVE YOU FALLEN IN THE PAST 12 MONTHS? YES . ANY NEW EXTREMITY NUMBNESS OR WEAKNESS? NO . HEAD INJURY NO . DEMENTIA NO . CEREBRAL PALSY NO . MULTIPLE SCLEROSIS NO . DIZZINESS NO . HEADACHE NO . STROKES NO; HISTORY OF TIAS . VERTIGO NO . CARDIOLOGY: DO YOU HAVE A PACEMAKER OR DEFIBRILLATOR? NO . ANGINA NO . HEART ATTACK YES 1997 . HEART SURGERY YES - 1997 . CONGESTIVE HEART FAILURE/FLUID OVERLOAD YES . CHEST PAIN NO . HIGH BLOOD PRESSURE YES . IRREGULAR HEART BEAT YES, HISTORY ATRIAL FIBRILLATION/FLUTTER . RESPIRATORY: HAVE YOU BEEN SICK IN THE PAST WEEK? NO . FEVER NO . FLU LIKE SYMPTOMS? NO . CPAP NO; DOES HAVE SLEEP APNEA, USES 3 L/MIN OXYGEN CONTINUOUSLY . BYPAP NO . ASTHMA NO . EMPHYSEMA NO . CHRONIC LUNG DISEASES NO . SHORTNESS OF BREATH ON EXERTION NO . DO YOU USE ANY TYPE OF TOBACCO (SMOKE, SMOKELESS, CHEW)? NO - QUIT 15 YEARS AGO . COUGH NO . SNORING NO . INTEGUMENTARY: DO YOU HAVE ANY RASHES OR OPEN SORES? NO . ALLERGIC/IMMUNO: ARE YOU ALLERGIC TO IV DYE? NO . ANY NEW ALLERGIES? NO . PSYCHIATRIC: DO YOU HAVE THOUGHTS OF HURTING YOURSELF OR SOMEONE ELSE? NO . ARE YOU ABUSED, NEGLECTED, OR IN AN UNSAFE ENVIRONMENT? NO . ENDOCRINOLOGY: ARE YOU DIABETIC? YES . THYROID DISORDER YES . OTHER: DO YOU NEED ANY PRESCRIPTIONS? NO . IF YES, PLEASE LIST: ____ . ANY NEW PROBLEMS WITH YOUR MEDICATIONS? NO . WHEN DID YOU LAST EAT? ____ . WHEN DID YOU LAST DRINK? ____ . WHAT DID YOU LAST DRINK? ____ . NAME OF PERSON DRIVING YOU HOME? ____ . DO YOU HAVE ANY OTHER QUESTIONS OR CONCERNS NO . VITAL SIGNS WT 254.4 LBS, HT 66 IN, BMI 41.06 INDEX, BP 101/52 MM HG, HR 75 /MIN, RR 20 /MIN, TEMP 97.1 F, OXYGEN SAT % 94%, NA INITIALS AW 1000, REVIEWED BY: EARL. EXAMINATION GENERAL EXAMINATION: GENERALNO ACUTE DISTRESS, WELL NOURISHED AND HYDRATED. PSYCHAPPROPRIATE MOOD AND AFFECT . LUNGS:DECREASED. HEART:NO MURMURS, REGULAR RATE AND RHYTHM. BACK:DENIES POINT TENDERNESS ALONG LUMBAR SPINE, SURROUNDING SKIN SHOWS NO ERYTHEMA, ECCHYMOSIS, INCREASED WARMTH, AND/OR SKIN ERUPTIONS NOTED. . EXTREMITIES:EQUAL STRENGTH OF LOWER EXTREMITIES BILATERALLY . ASSESSMENTS INTERVERTEBRAL DISC DISORDER WITH RADICULOPATHY OF LUMBAR REGION - M51.16 (PRIMARY) TREATMENT INTERVERTEBRAL DISC DISORDER WITH RADICULOPATHY OF LUMBAR REGION NOTES: LESI L4-L5 L5-S1 RIGHT-SIDED RADICULOPATHY. CLINICAL NOTES: 74-YEAR-OLD MALE IN FOR INITIAL PAIN CONSULT. GIVEN PRESENTING SYMPTOMS AND RESULTS OF PHYSICAL EXAMINATION RECOMMENDED LESI L4-L5 L5-S1 WITH POSTPROCEDURAL FOLLOW-UP. PATIENT HAS EXPRESSED UNDERSTANDING OF AND WAS IN AGREEMENT WITH TREATMENT PLAN. GIVEN TIME TO ASK QUESTIONS AND EXPRESS CONCERNS. OTHERS NOTES: LUMBAR EPIDURAL INJECTION HOME CARE MATERIAL WAS PRINTED. PREVENTIVE MEDICINE PAIN CLINIC TEACHING: PROCEDURE TEACHING PRE LUMBAR EPIDURAL STEROID INJECTION INSTRUCTIONS REVIEWED WITH PT AND . VERBALIZED UNDERSTANDING.. PROCEDURE CODES FA211 ESTABILISHED PATIENT [facility] FACILITY CHARGE DISPOSITION & COMMUNICATION FOLLOW UP POSTPROCEDURE (REASON: LESI L4-L5 L5-S1 RIGHT-SIDED RADICULOPATHY) ELECTRONICALLY SIGNED BY JORDAN CALDERA ON 10/05/2019 AT 01:17 PM EST DISCLAIMER : THIS IS A VISIT SUMMARY EXTRACTED FROM THE writewith CHART. IT IS NOT A COPY OF THE writewith PROGRESS NOTE. RAMO
== END ==
LOC: M PAIN 09:45
PROVIDERS: ATTEND Family Medicine
DX: M51.16 Intervertebral disc disorders with radiculopathy, lumbar region (principal)

== ENCOUNTER → 2019-12-14 | Outpatient (CLI) | payer MEDICARE ==
--- NOTE | 2019-12-16 02:51 | ECWPNPC ---
PATIENT NAME: YOLA MARINA : 1945 GENDER: MALE VISIT DATE: 12/14/2019 DISCHARGE DATE: 12/14/19 1214 VISIT LOCKED DATE TIME: PHYSICIAN: HARSHIL TURNER RESOURCE: HARSHIL TURNER REASON FOR APPOINTMENT 1. FOLLOW UP HISTORY OF PRESENT ILLNESS HISTORY OF PRESENT ILLNESS: PAIN THE PATIENT DESCRIBES THE PAIN... 74-YEAR-OLD MALE IN FOR CHRONIC PAIN FOLLOW-UP. HE RATES HIS PAIN CURRENTLY AT A 10 OUT OF 10 AND DESCRIBES IT ACHING. RECENT CLINIC VISIT AN LESI WAS SUBMITTED TO PATIENT'S INSURANCE HOWEVER WAS DECLINED. FALL RISK SCREENING: SCREENING :NO FALLS REPORTED IN THE LAST YEAR CURRENT MEDICATIONS TAKING GABAPENTIN 300 MG CAPSULE 1 CAPSULE ORALLY BID TAKING TIZANIDINE HCL 2 MG TABLET 1 TABLET NEEDED ORALLY THREE TIMES A DAY TAKING CRESTOR 20 MG TABLET 1 TABLET ORALLY ONCE A DAY TAKING LEVOTHYROXINE SODIUM 175 MCG TABLET 1 TABLET IN THE MORNING ON AN EMPTY STOMACH ORALLY ONCE A DAY TAKING SERTRALINE HCL 100 MG TABLET 1 1/2 TABLETS ORALLY ONCE A DAY TAKING MIRTAZAPINE 30 MG TABLET 1 TABLET AT BEDTIME ORALLY ONCE A DAY TAKING ASPIRIN ADULT LOW DOSE 81 MG TABLET DELAYED RELEASE 1 TABLET ORALLY ONCE A DAY TAKING FISH OIL 1200 MG CAPSULE 1 CAPSULE ORALLY ONCE A DAY TAKING NOVOLIN N 100 UNIT/ML SUSPENSION DIRECTED SUBCUTANEOUS 45 UNITS 2X DAILY TAKING TRULICITY 1.5 MG/0.5ML SOLUTION PEN-INJECTOR DIRECTED SUBCUTANEOUS WEEKLY TAKING NOVOLOG 100 UNIT/ML SOLUTION DIRECTED SUBCUTANEOUS 30 UNITS IN A.M. AND LUNCH AND 42 UNITS AT DINNER TAKING SPIRONOLACTONE 25 MG TABLET 1/2 TABLET ORALLY DAILY TAKING ENTRESTO 24-26 MG TABLET 1 TABLET ORALLY TWICE A DAY TAKING CARVEDILOL 12.5 MG TABLET 1 TABLET ORALLY TWICE A DAY TAKING CARVEDILOL 6.25 MG TABLET 1 TABLET ORALLY TWICE A DAY TAKING WARFARIN SODIUM 3 MG TABLET 1 TABLET ORALLY ONCE A DAY VARIES TAKING NITROSTAT 0.4 MG TABLET SUBLINGUAL DIRECTED SUBLINGUAL TAKING OXYGEN NASAL CANNULA 3 L CONTINUOUS NOT-TAKING TOUJEO MAX SOLOSTAR 300 UNIT/ML SOLUTION PEN-INJECTOR DIRECTED SUBCUTANEOUS NOT-TAKING NOVOLIN R 100 UNIT/ML SOLUTION DIRECTED INJECTION MEDICATION LIST REVIEWED AND RECONCILED WITH THE PATIENT PAST MEDICAL HISTORY 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 DIABETES, DIAGNOSED WITH UNSPECIFIED HEART DISEASE MOTHER: , CANCER OF THE BRAIN THAT MATASTISIZED, HYPERTENSION, OTHER MALIGNANT NEOPLASM OF UNSPECIFIED SITE 2DAUGHTER(S) . MOM HAD CANCEROLDEST SISTER-HEART [id number] SISTER-HEART DISEASE, COPD, CA ON LIPBROTHER-HEART DISEASEOLDEST DAUGHTER-HEALTHYYOUNGEST DAUGHTER-MS. SOCIAL HISTORY GENERAL: TOBACCO USE ARE YOU A:FORMER SMOKER HOW LONG HAS IT BEEN SINCE YOU LAST SMOKED?> 10 YEARS OTHERS AT HOME: SPOUSE, [id number]. HOUSING: OWNS HOME. EDUCATION LEVEL OF EDUCATION:HIGH SCHOOL DIET: REGULAR. LANGUAGE LANGUAGES SPOKEN:[place]IZ[place] DOMESTIC VIOLENCE DO YOU FEEL SAFE IN YOUR ENVIRONMENT?YES RECREATIONAL DRUG USE DRUG USE?NO EXERCISE: NO REGULAR EXERCISE. LEARNING BARRIERS / SPECIAL NEEDS BARRIERS TO LEARNING?YES COMMENTS TROUBLE REMEMBERING THINGS HEARING IMPAIRED?YES VISION IMPAIRED?YES COGNITIVELY IMPAIRED?NO : SLIGHT EARING LOSS BILATERAL, NO CHAMPAGNE'S :CORRECTIVE LENSES READING GLASSES READINESS TO LEARN?YES LEARNING PREFERENCES?NO LEARNING CAPABILITIES PRESENT?YES EMOTIONAL BARRIERS?NO SPECIAL DEVICES?YES :CANE GROUND HAND NEEDED?YES PAIN CLINIC PFS, CLERGY, PUBLIC HEALTH REFERRALS HAS THE PATIENT BEEN EDUCATED REGARDING HIS/HER PLAN OF CARE?YES HAS THE PATIENT BEEN EDUCATED REGARDING PAIN, THE RISK FOR PAIN, THE IMPORTANCE OF EFFECTIVE PAIN MANAGEMENT, AND THE PAIN ASSESSMENT PROCESS?YES LATEX QUESTIONNAIRE LATEX ALLERGY : HAVE YOU EVER DEVELOPED ANY TYPE OF REACTION AFTER HANDLING LATEX PRODUCTS SUCH RUBBER GLOVES, CONDOMS, DIAPHRAGMS, BALLOONS, SOCKS, OR UNDERWEAR?NO LATEX ALLERGY : HAVE YOU EVER DEVELOPED ANY TYPE OF REACTION DURING OR AFTER DENTAL APPOINTMENT, VAGINAL/RECTAL EXAMINATION, SURGICAL PROCEDURE, OR ANY OTHER EXPOSURE?NO DATE ASKED : 09/28/2019 LATEX RISK : HAVE YOU EVER HAD ANY DIFFICULTY BREATHING OR HIVES AFTER EATING OR HANDLING ANY FRUITS, OR VEGETABLES; SUCH KIWI, BANANAS, STONE FRUITS, OR CHESTNUTSNO LATEX RISK : DO YOU HAVE A PREVIOUS PERSONAL HISTORY OF MORE THAN NINE SURGERIES, SPINA BIFIDA, OR REPEATED CATHERIZATIONS? NO LATEX RISK : ARE YOU FREQUENTLY EXPOSED TO LATEX PRODUCTS IN YOUR OCCUPATION?NO CAFFEINE CAFFEINE USE?YES HOW OFTEN AND HOW MUCH? 1 CUP COFFEE DAILY AND SEVERAL DIET ICE TEAS A DAY ADVANCE DIRECTIVE ADVANCE DIRECTIVE DISCUSSED WITH PATIENT:YES HAS HCP AND POA - -NAN [phone] ALSO HAS A LIVING WILL QUAKER [id number] SCIENTOLOGIST MARITAL STATUS: . 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 INFORMATION ENTERED FROM REFERRAL, NOT VERIFIED WITH PATIENT 09/26/19 LAS09/28/19 1007 PRE APPOINTMENT CALL MADE AND INFORMATION PROVIDED BY HIS . AD. HOSPITALIZATION/MAJOR DIAGNOSTIC PROCEDURE [place], CABG A. FIB STENT RIGHT LEG 6-8 YRS AGO REVIEW OF SYSTEMS REVIEWED BY: PROVIDER: PAULA TURNER PRICE ANALYST-C . CONSTITUTIONAL: ANY CHANGE IN YOUR MEDICAL CONDITION? NO . CHILLS NO . FEVER NO . INFECTION: DO YOU HAVE NEW INFECTIONS? NO . DO YOU HAVE HISTORY OF MRSA? NO . MUSCULOSKELETAL: ANY NEW PATTERNS OF PAIN OR NUMBNESS? YES- INCREASED BACK PAIN DOWN RIGHT LEG AND HIP . GASTROENTEROLOGY: ANY NEW CHANGE IN BOWEL CONTROL? NO . GENITOURINARY: ANY NEW CHANGE IN BLADDER CONTROL? NO . IS THERE A CHANCE YOU COULD BE ? NO . HEMATOLOGY/LYMPH: DO YOU TAKE ANY BLOOD THINNERS? (FOR EXAMPLE- COUMADIN, PLAVIX, AGGRENOX, PLATEL, PRADAXA, OR XARELTO) YES- WARAFARIN DAILY . WHEN WAS YOUR LAST DOSE? DATE:12/13/2019TIME: 1700 . NEUROLOGY: HAVE YOU FALLEN IN THE PAST 12 MONTHS? YES- FREQUENT FALLS, STATES NO SERIOUS INJURIES OR MEDICAL CARE RECEIVED . ANY NEW EXTREMITY NUMBNESS OR WEAKNESS? YES- INCREASED WEAKNESS IN BILATERAL LOWER EXTREMITIES . CARDIOLOGY: DO YOU HAVE A PACEMAKER OR DEFIBRILLATOR? NO . RESPIRATORY: HAVE YOU BEEN SICK IN THE PAST WEEK? NO . FEVER NO . FLU LIKE SYMPTOMS? NO . COUGH NO . INTEGUMENTARY: DO YOU HAVE ANY RASHES OR OPEN SORES? NO . ALLERGIC/IMMUNO: ARE YOU ALLERGIC TO IV DYE? NO . ANY NEW ALLERGIES? NO . PSYCHIATRIC: DO YOU HAVE THOUGHTS OF HURTING YOURSELF OR SOMEONE ELSE? NO . ARE YOU ABUSED, NEGLECTED, OR IN AN UNSAFE ENVIRONMENT? NO . ENDOCRINOLOGY: ARE YOU DIABETIC? YES . OTHER: DO YOU NEED ANY PRESCRIPTIONS? NO . IF YES, PLEASE LIST: ____ . ANY NEW PROBLEMS WITH YOUR MEDICATIONS? NO . WHEN DID YOU LAST EAT? ____ . WHEN DID YOU LAST DRINK? ____ . WHAT DID YOU LAST DRINK? ____ . NAME OF PERSON DRIVING YOU HOME? ____ . DO YOU HAVE ANY OTHER QUESTIONS OR CONCERNS YES- NEED SOMETHING DONE FOR PAIN . VITAL SIGNS WT 254.6 LBS, HT 66 IN, BMI 41.09 INDEX, BP 80/46 MM HG, REPEAT BP 98/48 MANUAL, HR 75 /MIN, RR 20 /MIN, TEMP 97.5 F, OXYGEN SAT % 91% 3.0L, SAFE IN ENV? (Y/N) YES, NA INITIALS MS 1101, REVIEWED BY: ANA. EXAMINATION GENERAL EXAMINATION: GENERALNO ACUTE DISTRESS, WELL NOURISHED AND HYDRATED. PSYCHAPPROPRIATE MOOD AND AFFECT . LUNGS:BILATERAL WHEEZES . HEART:NO MURMURS, REGULAR RATE AND RHYTHM. ASSESSMENTS INTERVERTEBRAL DISC DISORDER WITH RADICULOPATHY OF LUMBAR REGION - M51.16 (PRIMARY) TREATMENT INTERVERTEBRAL DISC DISORDER WITH RADICULOPATHY OF LUMBAR REGION STOP GABAPENTIN CAPSULE, 300 MG, 1 CAPSULE, ORALLY, BID, 30 DAYS, 60 CAPSULE START LYRICA CAPSULE, 75 MG, 1 CAPSULE, ORALLY, TWICE DAILY, 30 DAYS, 60 NOTES: LESI L4-L5 L5-S1 RIGHT-SIDED RADICULOPATHY. CLINICAL NOTES: 74-YEAR-OLD MALE IN FOR CHRONIC PAIN FOLLOW-UP. GIVEN PRESENTING SYMPTOMS AND RESULTS PHYSICAL EXAMINATION RECOMMENDED STOPPING GABAPENTIN AND STARTING LYRICA 75 MG TWICE A DAY WITH FOLLOW-UP IN ONE MONTH TO DETERMINE EFFICACY TREATMENT. GABAPENTIN TITRATION FOLLOWS 300 MG DAILY X1 WEEK THEN 300 MG EVERY OTHER DAY X1 WEEK THEN STOP. PATIENT HAS EXPRESSED UNDERSTANDING OF AND WAS IN AGREEMENT WITH TREATMENT PLAN. GIVEN TIME TO ASK QUESTIONS AND EXPRESS CONCERNS., ISTOP REGISTRY REVIEWED AND DEMONSTRATES COMPLLIANCE. (REF # [id number] ) BRINGS IN MEDICATIONS WHICH IS APPROPRIATE FOR WHAT WAS DISPENSED. RECENT URINE TOXICOLOGY REVIEWED. NO UNAUTHORIZED MEDICATIONS. NO ILLICIT SUBSTANCES AND PRESCRIBED MEDICATIONS WERE PRESENT. OTHERS NOTES: REVIEWED WITH PT AND 12/14/2019 1109 NLJ LUMBAR EPIDURAL INJECTION HOME CARE MATERIAL WAS PRINTED. PREVENTIVE MEDICINE PAIN CLINIC TEACHING: MEDICATIONS GABAPENTIN TAPERING EDUCATION PRIVIDED TAKE 1 TAB DAILY X 1 WEEK, THEN 1 TAB EVERY OTHER DAY X 1 WEEK, THEN STOP. BEGIN LYRICA 75 MG BID NOW. PT AND VERBALIZE UNDERSTANDING OF ALL INSTRUCTIONS REVIEWEWD. 12/14/2019 1203 NLJ . PROCEDURE TEACHING LUMBAR EPIDURAL STEROID PROCEDURE INFORMATION REVIEWED WITH PT, PRE PROCEDURE INSTRUCTIONS ALSO REVIEWED. 12/14/2019 1201 NLJ. PROCEDURE CODES FA211 ESTABILISHED PATIENT [facility] CHARGE DISPOSITION & COMMUNICATION FOLLOW UP 4 WEEKS (REASON: BACK PAIN) ELECTRONICALLY SIGNED BY JORADN CALDERA ON 12/15/2019 AT 08:55 AM EST DISCLAIMER : THIS IS A VISIT SUMMARY EXTRACTED FROM THE [employer] CHART. IT IS NOT A COPY OF THE [employer] PROGRESS NOTE. RAMO
== END ==
LOC: M PAIN 10:45
PROVIDERS: ATTEND Family Medicine
DX: M51.16 Intervertebral disc disorders with radiculopathy, lumbar region (principal); G89.29 Other chronic pain; E11.9 Type 2 diabetes mellitus without complications; J44.9 Chronic obstructive pulmonary disease, unspecified; E03.9 Hypothyroidism, unspecified; Z86.59 Personal history of other mental and behavioral disorders; Z87.891 Personal history of nicotine dependence; Z88.8 Allergy status to other drugs, medicaments and biological substances; Z79.01 Long term (current) use of anticoagulants; E66.01 Morbid (severe) obesity due to excess calories; Z68.41 Body mass index [BMI] 40.0-44.9, adult; Z79.4 Long term (current) use of insulin; Z79.82 Long term (current) use of aspirin; Z79.899 Other long term (current) drug therapy

== ENCOUNTER → 2020-01-16 | Outpatient (REF) | payer MEDICARE ==
[2020-01-16 14:10] LABS: CALCIUM LEVEL 8.5 MG/DL (8.8-10.2); CREATININE FOR GFR 1.38 MG/DL (0.70-1.30); GLOMERULAR FILTRATION RATE 53.9 (>42); POTASSIUM SERUM 4.1 MEQ/L (3.5-5.1)
== END ==
LOC: M SHH 12:37
PROVIDERS: ATTEND Nurse Practitioner
DX: N17.9 Acute kidney failure, unspecified (principal); Z79.899 Other long term (current) drug therapy; E86.0 Dehydration